=== PATIENT | female | born 1960 | race Caucasian/White ===

== ENCOUNTER 2020-02-02 20:02 | Inpatient (IN) | payer MEDICAID, SELFPAY ==
[2020-02-02 20:10] VITALS: BP 117/68; PULSE 115; RESP 20; TEMP 36.9; O2SAT 96; BMI 28.3
--- NOTE | 2020-02-02 20:10 | CTR_ITS ---
PROCEDURE INFORMATION: Exam: CT Head Without Contrast Exam date and time: 02/02/2020 8:13 PM Age: 59 years old Clinical indication: Altered mental status/memory loss; Additional info: AMS TECHNIQUE: Imaging protocol: Computed tomography of the head without contrast. Radiation optimization: All CT scans at this facility use at least one of these dose optimization techniques: automated exposure control; mA and/or kV adjustment per patient size (includes targeted exams where dose is matched to clinical indication); or iterative reconstruction. COMPARISON: No relevant prior studies available. RADIATION DOSE METRICS: Total DLP (mGy-cm): 744.99 FINDINGS: Brain: Normal. No hemorrhage. Unremarkable white matter. No mass effect. Ventricles: Normal. No ventriculomegaly. Bones/joints: Unremarkable. No acute fracture. Sinuses: Mild scattered paranasal sinus mucosal thickening and secretions. Mastoid air cells: Visualized mastoid air cells are well aerated. Soft tissues: Unremarkable. CT/CT head wo con* [id number] IMPRESSION: No acute intracranial abnormality. Radiation Dose CTDIVOL = (mGy): DLP = 744.99 (mGy-cm)
--- NOTE | 2020-02-02 20:10 | XRR_ITS ---
PROCEDURE INFORMATION: Exam: XR Chest, 1 View Exam date and time: 02/02/2020 8:43 PM Age: 59 years old Clinical indication: Dyspnea; Additional info: AMS TECHNIQUE: Imaging protocol: XR of the chest Views: 1 view. COMPARISON: No relevant prior studies available. FINDINGS: Lungs: Unremarkable. No consolidation. Pleural space: Unremarkable. No pleural effusion. No pneumothorax. Heart/Mediastinum: Unremarkable. No cardiomegaly. Bones/joints: Unremarkable. XR/XR chest 1V portable [id number] IMPRESSION: No acute findings.
--- NOTE | 2020-02-02 20:11 | US_ITS ---
WS: [id number] Complete ABDOMINAL ULTRASOUND HISTORY: Abdominal Pain COMPARISON: None available. Liver: 16.5 cm in length. Significant coarsened echotexture throughout the liver. Loss of the normal portal triads. No bile duct dilatation. No mass is identified. Surface of the liver is irregular. Gallbladder: Prior cholecystectomy. Pancreas: Poorly visualized. CBD: 0.7 cm. Right kidney: 9.9 cm x 5.2 cm x 4.7 cm. No mass, cortical thickening or hydronephrosis. Left kidney: 11.0 cm x 5.1 cm x 4.8 cm. No mass, cortical thickening or hydronephrosis. Spleen: Spleen is slightly enlarged at 14.6 cm in length. Abdominal aorta and IVC are within normal limits. No ascites. US/US abdomen complete* [id number] IMPRESSION: 1. Marked hepatocellular disease. Probably cirrhosis with hepatic steatosis. 2. Prior cholecystectomy. Mild splenomegaly.
--- NOTE | 2020-02-02 20:11 | ECG_ITS ---
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 Measurements Intervals [place] Rate: 114 P: 195 ND: 221 QRS: 44 QRSD: 95 T: 33 QT: 359 QTc: 496 Interpretive Statements ECTOPIC ATRIAL TACHYCARDIA WITH FIRST DEGREE AV BLOCK LOW QRS VOLTAGE IN EXTREMITY LEADS [QRS DEFLECTION < 0.5 mV IN LIMB LEADS] No previous ECG available for comparison Electronically Signed On 02-02-2020 23:38:57 CDT by Viki Kee M.D. [id number]
--- NOTE | 2020-02-02 20:27 | CTR_ITS ---
PROCEDURE INFORMATION: Exam: CT Abdomen And Pelvis With Contrast Exam date and time: 02/02/2020 8:13 PM Age: 59 years old Clinical indication: Abdominal pain; Prior surgery; Additional info: Abdominal pain/bloody stools TECHNIQUE: Imaging protocol: Computed tomography of the abdomen and pelvis with intravenous contrast. Radiation optimization: All CT scans at this facility use at least one of these dose optimization techniques: automated exposure control; mA and/or kV adjustment per patient size (includes targeted exams where dose is matched to clinical indication); or iterative reconstruction. Contrast material: OMNI 300; Contrast volume: 95 ml; Contrast route: INTRAVENOUS (IV); COMPARISON: No relevant prior studies available. RADIATION DOSE METRICS: Total DLP (mGy-cm): 1087.62 FINDINGS: Liver: Severe hepatic steatosis with lobulation of the liver contour and hypertrophied left hepatic lobe, evidence for underlying chronic liver disease. Gallbladder and bile ducts: Normal. No calcified stones. No ductal dilation. Pancreas: Normal. No ductal dilation. Spleen: Borderline splenomegaly. Adrenals: Normal. No mass. Kidneys and ureters: Normal. No hydronephrosis. Stomach and bowel: Pronounced gastric, duodenal, and colonic wall thickening with submucosal edema. Correlate for infectious or inflammatory bowel disease versus bowel congestion from liver disease. Appendix: Appendectomy. Intraperitoneal space: Unremarkable. No free air. No significant fluid collection. Vasculature: Unremarkable. No abdominal aortic aneurysm. Lymph nodes: Unremarkable. No enlarged lymph nodes. Bladder: Unremarkable as visualized. Reproductive: Hysterectomy. Bones/joints: Unremarkable. No acute fracture. Soft tissues: Numerous clips abutting the liver. Other findings: Small amounts of streaky fluid and stranding. CT/CT abdomen pelvis w con* [id number] IMPRESSION: 1. Pronounced gastric, duodenal, and colonic wall thickening with submucosal edema. Correlate for infectious or inflammatory bowel disease versus bowel congestion from liver disease. 2. Severe hepatic steatosis with lobulation of the liver contour and hypertrophied left hepatic lobe, evidence for underlying chronic liver disease. 3. Borderline splenomegaly. 4. Small amounts of streaky fluid and stranding. Radiation Dose CTDIVOL = (mGy): DLP = 1087.62 (mGy-cm)
--- NOTE | 2020-02-02 20:39 | W.ED.NAVMDI ---
HPI - Nausea/Vomiting/Diarrhea General: Chief complaint: Nausea/Vomiting/Diarrhea Stated complaint: etoh Time Seen by Provider: 02/02/20 20:10 Source: patient Mode of arrival: ambulatory Limitations: no limitations History of Present Illness: HPI Narrative: Ms. Rueda is a 59-year-old female who comes in with a complaint of bloody stools. She is been having bloody stools for the past few days. EMS reports the patient is an alcoholic and has been on a prolonged alcohol binge. Patient also states that she has ulcers but denies any history of esophageal varices. She has not been hypotensive for them. Patient denies any other medical problems. She keeps continually asking for something to drink. The patient is a poor historian further history is taken from old charts and EMS. Associated nausea: Yes Associated symtoms: Reports nausea; Denies change in vision, chest pain, diaphoresis, dizziness, dysuria, fatigue, headache(s), malaise, palpitations or syncope Review of Systems Const: Denies: fever(s), chills, body aches, fatigue, malaise or diaphoresis Eyes: Denies: change in vision, blurry vision, blind spots, photophobia, eye discharge or eye redness ENMT: Denies: throat pain, odynophagia, hoarseness, swelling of lips/tongue, oral sores, ear or mastoid pain, ear discharge, change in hearing or nasal discharge Card: Denies: chest pain, palpitations, irregular heart rhythm, edema, lightheadedness, syncope, pre-syncope, dyspnea on exertion or orthopnea Resp: Denies: dyspnea, productive cough, non-productive cough, wheezing, hemoptysis or chest congestion GI: Reports: abdominal pain, nausea, vomiting, hematemesis, diarrhea and hematochezia; Denies: coffee ground emesis, heartburn, constipation, GI cramping or melena : Denies: flank pain, dysuria, urinary frequency, urinary urgency or hematuria Musc: Denies: neck pain, back pain, extremity pain, extremity swelling, joint pain, joint swelling, joint redness, joint warmth or joint stiffness Skin/Breast: Denies: rash, pruritus, erythema, skin tenderness or jaundice Neuro: Denies: headache(s), numbness in extremities, weakness in extremities, sensory changes, lack of coordination, difficulty walking, dizziness, vertigo, confusion, Slurred speech present or seizure-like activity Jared/Lymph: Denies: easy bruising, easy bleeding, petechiae, purpura or enlarged lymph nodes All/Imm: Denies: urticaria, throat swelling, tongue swelling, facial swelling or acute wheezing PFSH ED PFSH: Medical History Alcoholism Anxiety Depression Eating disorder Liver cirrhosis Surgical History History of esophagogastroduodenoscopy (EGD) S/P cholecystectomy Social History Current gender identity: Female Physical Exam Const: COMMON NORMALS: no acute distress, patient oriented x3, no limitations, healthy appearing and well nourished GENERAL APPEARANCE: cooperative, well kempt and well developed HENMT: COMMON NORMALS: normocephalic, atraumatic, external ears normal, EAC's normal and Normal external nose present HEAD & SCALP: normal to inspection, normocephalic and atraumatic FACE & SINUS: normal facial exam and face symmetric NOSE: Normal external nose present and Normal nares present EXTERNAL EAR: Yes external ears normal EXTERNAL AUDITORY CANAL: EAC's normal MOUTH: Normal oral and palatal mucosa present, lip normal and tongue normal Eye: COMMON NORMALS: Equal, round and reactive pupils present and conjunctivae normal GENERAL EYE: appearance normal, both eyes and all related structures ALIGNMENT: Yes alignment normal PERIORBITAL: periorbital findings normal EYELID: eyelids normal CONJUNCTIVA: Yes conjunctivae normal SCLERA: sclerae normal PUPIL: Yes Equal, round and reactive pupils present Neck/C-Spine: COMMON NORMALS: full ROM, no lymphadenopathy, supple, no meningeal signs and no JVD GENERAL: Yes normal visual inspection and Yes trachea midline Chest: COMMONS NORMALS: normal inspection of the chest and normal palpation of entire chest wall Resp: COMMON NORMALS: normal respiratory effort, No retractions and No use of accessory muscles EFFORT & INSPECTION: Yes able to speak in complete sentences and Yes symmetric chest movement AUSCULTATION: no crackles, no rales, no rhonchi and no wheezes Cardio: COMMON NORMALS: no JVD, regular rate, regular rhythm, S1 normal heart sound present and S2 normal heart sound present RATE: regular rate RHYTHM: regular rhythm HEART SOUNDS: S1 normal heart sound present, S2 normal heart sound present, no click, no gallops, no murmurs, no rubs and abnormal split S2 GI: COMMON NORMALS: Soft to palpation and No hepatosplenomegaly present PALPATION: Yes Soft to palpation, No Tenderness to palpation present (GI), No Guarding due to palpation present (GI), No Rigid due to palpation, Yes No hepatosplenomegaly present, No Hernia present, No Palpable mass present and No Pulsatile mass present : COMMON NORMALS: Yes no CVA tenderness BLADDER/KIDNEY EXAM: Yes no CVA tenderness EXTERNAL FEMALE EXAM: No Hernia present Back/Pelvis: COMMON NORMALS: no CVA tenderness, thoracic and lumbar spine normal to inspection, no thoracic nor lumbar tenderness and thoraco-lumbar ROM normal Extremity: COMMON NORMALS: normal to inspection, full ROM, capillary refill normal, no joint enlargement, no clubbing, cyanosis or edema and no calf tenderness Neuro: COMMON NORMALS: patient oriented x3, CN's II-XII intact bilaterally, moves all extremities, no focal motor deficits and no sensory deficits noted MENINGEAL SIGNS: Yes no meningeal signs SPEECH: speech normal Psych: COMMON NORMALS: mental status grossly normal, Normal thought process present, cooperative, normal affect, speech normal and activity/motor behavior normal APPEARANCE: Yes well kempt SPEECH: Yes normal speech THOUGHT PROCESS: Normal thought process present Skin: COMMON NORMALS: no rashes or lesions noted, turgor normal, no jaundice, no petechiae and no mottling GENERAL SKIN EXAM: no rashes or lesions noted and turgor normal Course Vital Signs: Vital signs: Vital Signs Temperature 98.5 F 02/02/20 20:10 Pulse Rate 112 H 02/02/20 23:15 Respiratory Rate 19 H 02/02/20 23:15 Blood Pressure 110/68 02/02/20 23:15 Pulse Oximetry 96 02/02/20 23:15 MDM - Nausea/Vomiting/Diarrhea MDM Narrative: Medical decision making narrative: [id number] -the case had previously been discussed with both Drs. Mcconnell and Harjeet. Both were agreeable to admission and consult. The patient has no history of esophageal varices and I confirmed no evidence of esophageal varices on the CT scan with the [facility] radiologist. The patient does have evidence of ulcers and she knew of these ulcers. It is unclear whether she is had any hematic emesis but she is definitely had hematochezia. I also asked the radiologist about the possibility of mesenteric ischemia secondary to the patient's lactate although she does not have pain out of proportion to exam or signs of peritonitis on her abdominal exam. He states the distribution of the inflammation is not consistent with mesenteric ischemia. Patient does not appear to have a great deal of abdominal pain she seems to be primarily concerned with getting something to drink while here. She is afebrile but she has been treated for sepsis, placed on a proton pump inhibitor for her GI bleed and given empiric antibiotics for her colitis. At this time the patient is almost completed her fluid bolus and her heart rate is in the 100s and she appears to Have converted to a sinus rhythm. Her blood pressure has always been stable and never hypotensive. The patient was typed and crossmatched for 2 units of blood and they are on hold in the lab. I anticipate the patient will likely have to be transfused after hemodilution from the sepsis bolus but she has not demonstrated any ongoing blood losses in her stools here. This time the patient is improved in her condition but I believe she should still go to the ICU for definitive care. Lab Data: Attestation: I reviewed the patient's lab results. Labs: Lab Results 02/02/20 02/02/20 02/02/20 Range/Units 20:38 20:38 20:38 WBC 8.9 (4.0-10.0) 10^3/ uL RBC 3.08 L (4.1-5.3) 10^6/u L Hgb 8.8 L (11.5-15.3) g/dL Hct 28.6 L (37.0-47.0) % MCV 92.9 (81-99) fL MCH 28.6 (28.0-34.0) pg MCHC 30.8 (30.0-36.0) g/dL RDW 16.1 H (12.1-15.1) % Plt Count 40 L (130-400) 10^3/c mm MPV 12.2 H (7.4-10.4) fL Neut % (Auto) 70.4 % Lymph % (Auto) 22.8 % Spalding % (Auto) 5.2 % Eos % (Auto) 0.7 % Baso % (Auto) 0.2 % Neut # (Auto) 6.28 (1.8-7.7) 10^3/u L Lymph # (Auto) 2.0 (0.8-4.8) 10^3/u L Spalding # (Auto) 0.5 (0.2-0.9) 10^3/u L Eos # (Auto) 0.1 (0.0-0.8) 10^3/u L Baso # (Auto) 0.0 (0.0-0.1) 10^3/u L Nucleated RBC % (a uto) 0.2 % Nucleated RBCs # 0.0 /100WBC PT (10.5-13.3) SECO NDS INR (0.8-1.2) APTT (23.9-36.7) SECO NDS Specimen Type Sample Site ABG pH (7.35-7.45) ABG pCO2 (35-45) mmHg ABG pO2 (80.0-100.0) mmH g ABG HCO3 (22-26) mmol/L ABG O2 Saturation ABG Base Excess (-2.0-2.0) mmol/ L Tashi Test A-a O2 Gradient (5-10) mmHg Hematocrit (37-47) % Hgb O2 Saturation (95-100) % Carboxyhemoglobin (0.4-20.1) %THgb Methemoglobin (0.4-1.5) % Total Hemoglobin (12-16) g/dL Ionized Calcium (1.1-1.4) mmol/L O2 Delivery Device FiO2 % Architectural Drafting Instructor ID Sodium 141 (136-145) mmol/L Potassium 3.0 L (3.5-5.1) mmol/L Chloride 102 (98-107) mmol/L Carbon Dioxide 18 L (22-29) mmol/L Anion Gap 24.0 H (5-19) BUN 8 (6-20) mg/dL Creatinine 0.5 (0.5-0.9) mg/dL GFR Calculation 127.2 (90-130) mL/min Glucose 89 (65-115) mg/dL Calculated Osmolal ity 287 (285-295) mOsm/k g Lactic Acid (0.5-2.2) mmol/L Calcium 6.7 L (8.5-10.5) mg/dL Magnesium 1.7 (1.7-2.3) mg/dL Total Bilirubin 0.4 (0.15-1.2) mg/dL AST 50 H (0-32) U/L ALT 28 (0-33) U/L Alkaline Phosphata se 163 H (35-105) IU/L Ammonia 43 (11-51) umol/L Creatine Kinase 95 (26-192) U/L Troponin T Baselin e (0-10) ng/L Total Protein 5.1 L (6.6-8.7) g/dL Albumin 3.2 L (3.5-5.2) g/dL Globulin 1.9 (1.3-4.6) g/dL Lipase 181 H (13-60) U/L TSH 1.25 (0.27-4.20) uIU/ mL Free T4 0.73 L (0.82-1.77) ng/d L Urine Color (Yellow) Urine Appearance (CLEAR) Urine pH (5-7) Ur Specific Gravit y (1.005-1.030) Urine Protein (Negative) Urine Glucose (UA) (Normal) Urine Ketones (Negative) Urine Blood (Negative) Urine Nitrate (Negative) Urine Bilirubin (NEGATIVE) Urine Urobilinogen (Negative) mg/dL Ur Leukocyte Bindu ase (Negative) Urine RBC (0-2) /hpf Urine WBC (0-5) /hpf Ur Squamous Epith Cells (0-5) Urine Bacteria (NONE) Ethyl Alcohol 363 H* (0-10) mg/dL Serum Ketones (Negative) Blood Type Rho(D) Type Antibody Screen Crossmatch 02/02/20 02/02/20 02/02/20 Range/Units 20:38 20:38 20:38 WBC (4.0-10.0) 10^3/ uL RBC (4.1-5.3) 10^6/u L Hgb (11.5-15.3) g/dL Hct (37.0-47.0) % MCV (81-99) fL MCH (28.0-34.0) pg MCHC (30.0-36.0) g/dL RDW (12.1-15.1) % Plt Count (130-400) 10^3/c mm MPV (7.4-10.4) fL Neut % (Auto) % Lymph % (Auto) % Spalding % (Auto) % Eos % (Auto) % Baso % (Auto) % Neut # (Auto) (1.8-7.7) 10^3/u L Lymph # (Auto) (0.8-4.8) 10^3/u L Spalding # (Auto) (0.2-0.9) 10^3/u L Eos # (Auto) (0.0-0.8) 10^3/u L Baso # (Auto) (0.0-0.1) 10^3/u L Nucleated RBC % (a uto) % Nucleated RBCs # /100WBC PT 15.30 H (10.5-13.3) SECO NDS INR 1.17 (0.8-1.2) APTT 26.0 (23.9-36.7) SECO NDS Specimen Type Sample Site ABG pH (7.35-7.45) ABG pCO2 (35-45) mmHg ABG pO2 (80.0-100.0) mmH g ABG HCO3 (22-26) mmol/L ABG O2 Saturation ABG Base Excess (-2.0-2.0) mmol/ L Tashi Test A-a O2 Gradient (5-10) mmHg Hematocrit (37-47) % Hgb O2 Saturation (95-100) % Carboxyhemoglobin (0.4-20.1) %THgb Methemoglobin (0.4-1.5) % Total Hemoglobin (12-16) g/dL Ionized Calcium (1.1-1.4) mmol/L O2 Delivery Device FiO2 % Architectural Drafting Instructor ID Sodium (136-145) mmol/L Potassium (3.5-5.1) mmol/L Chloride (98-107) mmol/L Carbon Dioxide (22-29) mmol/L Anion Gap (5-19) BUN (6-20) mg/dL Creatinine (0.5-0.9) mg/dL GFR Calculation (90-130) mL/min Glucose (65-115) mg/dL Calculated Osmolal ity (285-295) mOsm/k g Lactic Acid 4.2 H* (0.5-2.2) mmol/L Calcium (8.5-10.5) mg/dL Magnesium (1.7-2.3) mg/dL Total Bilirubin (0.15-1.2) mg/dL AST (0-32) U/L ALT (0-33) U/L Alkaline Phosphata se (35-105) IU/L Ammonia (11-51) umol/L Creatine Kinase (26-192) U/L Troponin T Baselin e (0-10) ng/L Total Protein (6.6-8.7) g/dL Albumin (3.5-5.2) g/dL Globulin (1.3-4.6) g/dL Lipase (13-60) U/L TSH (0.27-4.20) uIU/ mL Free T4 (0.82-1.77) ng/d L Urine Color (Yellow) Urine Appearance (CLEAR) Urine pH (5-7) Ur Specific Gravit y (1.005-1.030) Urine Protein (Negative) Urine Glucose (UA) (Normal) Urine Ketones (Negative) Urine Blood (Negative) Urine Nitrate (Negative) Urine Bilirubin (NEGATIVE) Urine Urobilinogen (Negative) mg/dL Ur Leukocyte Bindu ase (Negative) Urine RBC (0-2) /hpf Urine WBC (0-5) /hpf Ur Squamous Epith Cells (0-5) Urine Bacteria (NONE) Ethyl Alcohol (0-10) mg/dL Serum Ketones Positive H (Negative) Blood Type Rho(D) Type Antibody Screen Crossmatch 02/02/20 02/02/20 02/02/20 Range/Units 20:38 20:38 20:42 WBC (4.0-10.0) 10^3/ uL RBC (4.1-5.3) 10^6/u L Hgb (11.5-15.3) g/dL Hct (37.0-47.0) % MCV (81-99) fL MCH (28.0-34.0) pg MCHC (30.0-36.0) g/dL RDW (12.1-15.1) % Plt Count (130-400) 10^3/c mm MPV (7.4-10.4) fL Neut % (Auto) % Lymph % (Auto) % Spalding % (Auto) % Eos % (Auto) % Baso % (Auto) % Neut # (Auto) (1.8-7.7) 10^3/u L Lymph # (Auto) (0.8-4.8) 10^3/u L Spalding # (Auto) (0.2-0.9) 10^3/u L Eos # (Auto) (0.0-0.8) 10^3/u L Baso # (Auto) (0.0-0.1) 10^3/u L Nucleated RBC % (a uto) % Nucleated RBCs # /100WBC PT (10.5-13.3) SECO NDS INR (0.8-1.2) APTT (23.9-36.7) SECO NDS Specimen Type Arterial Sample Site Radial, left ABG pH 7.39 (7.35-7.45) ABG pCO2 29.3 L (35-45) mmHg ABG pO2 74.3 L (80.0-100.0) mmH g ABG HCO3 17.9 L (22-26) mmol/L ABG O2 Saturation 95.4 ABG Base Excess -6.2 L (-2.0-2.0) mmol/ L Tashi Test Pos A-a O2 Gradient 37.4 H (5-10) mmHg Hematocrit 28.0 L (37-47) % Hgb O2 Saturation 92.8 L (95-100) % Carboxyhemoglobin 2.1 (0.4-20.1) %THgb Methemoglobin 0.6 (0.4-1.5) % Total Hemoglobin 9.1 L (12-16) g/dL Ionized Calcium 1.0 L (1.1-1.4) mmol/L O2 Delivery Device Room air FiO2 21.0 % Architectural Drafting Instructor ID monro Sodium 145.0 H (136-145) mmol/L Potassium 3.0 L (3.5-5.1) mmol/L Chloride (98-107) mmol/L Carbon Dioxide (22-29) mmol/L Anion Gap (5-19) BUN (6-20) mg/dL Creatinine (0.5-0.9) mg/dL GFR Calculation (90-130) mL/min Glucose 93.0 (65-115) mg/dL Calculated Osmolal ity (285-295) mOsm/k g Lactic Acid (0.5-2.2) mmol/L Calcium (8.5-10.5) mg/dL Magnesium (1.7-2.3) mg/dL Total Bilirubin (0.15-1.2) mg/dL AST (0-32) U/L ALT (0-33) U/L Alkaline Phosphata se (35-105) IU/L Ammonia (11-51) umol/L Creatine Kinase (26-192) U/L Troponin T Baselin e 8 (0-10) ng/L Total Protein (6.6-8.7) g/dL Albumin (3.5-5.2) g/dL Globulin (1.3-4.6) g/dL Lipase (13-60) U/L TSH (0.27-4.20) uIU/ mL Free T4 (0.82-1.77) ng/d L Urine Color (Yellow) Urine Appearance (CLEAR) Urine pH (5-7) Ur Specific Gravit y (1.005-1.030) Urine Protein (Negative) Urine Glucose (UA) (Normal) Urine Ketones (Negative) Urine Blood (Negative) Urine Nitrate (Negative) Urine Bilirubin (NEGATIVE) Urine Urobilinogen (Negative) mg/dL Ur Leukocyte Bindu ase (Negative) Urine RBC (0-2) /hpf Urine WBC (0-5) /hpf Ur Squamous Epith Cells (0-5) Urine Bacteria (NONE) Ethyl Alcohol (0-10) mg/dL Serum Ketones (Negative) Blood Type O Positive Rho(D) Type Positive Antibody Screen Negative Crossmatch See Detail 02/02/20 Range/Units 22:35 WBC (4.0-10.0) 10^3/ uL RBC (4.1-5.3) 10^6/u L Hgb (11.5-15.3) g/dL Hct (37.0-47.0) % MCV (81-99) fL MCH (28.0-34.0) pg MCHC (30.0-36.0) g/dL RDW (12.1-15.1) % Plt Count (130-400) 10^3/c mm MPV (7.4-10.4) fL Neut % (Auto) % Lymph % (Auto) % Spalding % (Auto) % Eos % (Auto) % Baso % (Auto) % Neut # (Auto) (1.8-7.7) 10^3/u L Lymph # (Auto) (0.8-4.8) 10^3/u L Spalding # (Auto) (0.2-0.9) 10^3/u L Eos # (Auto) (0.0-0.8) 10^3/u L Baso # (Auto) (0.0-0.1) 10^3/u L Nucleated RBC % (a uto) % Nucleated RBCs # /100WBC PT (10.5-13.3) SECO NDS INR (0.8-1.2) APTT (23.9-36.7) SECO NDS Specimen Type Sample Site ABG pH (7.35-7.45) ABG pCO2 (35-45) mmHg ABG pO2 (80.0-100.0) mmH g ABG HCO3 (22-26) mmol/L ABG O2 Saturation ABG Base Excess (-2.0-2.0) mmol/ L Tashi Test A-a O2 Gradient (5-10) mmHg Hematocrit (37-47) % Hgb O2 Saturation (95-100) % Carboxyhemoglobin (0.4-20.1) %THgb Methemoglobin (0.4-1.5) % Total Hemoglobin (12-16) g/dL Ionized Calcium (1.1-1.4) mmol/L O2 Delivery Device FiO2 % Architectural Drafting Instructor ID Sodium (136-145) mmol/L Potassium (3.5-5.1) mmol/L Chloride (98-107) mmol/L Carbon Dioxide (22-29) mmol/L Anion Gap (5-19) BUN (6-20) mg/dL Creatinine (0.5-0.9) mg/dL GFR Calculation (90-130) mL/min Glucose (65-115) mg/dL Calculated Osmolal ity (285-295) mOsm/k g Lactic Acid (0.5-2.2) mmol/L Calcium (8.5-10.5) mg/dL Magnesium (1.7-2.3) mg/dL Total Bilirubin (0.15-1.2) mg/dL AST (0-32) U/L ALT (0-33) U/L Alkaline Phosphata se (35-105) IU/L Ammonia (11-51) umol/L Creatine Kinase (26-192) U/L Troponin T Baselin e (0-10) ng/L Total Protein (6.6-8.7) g/dL Albumin (3.5-5.2) g/dL Globulin (1.3-4.6) g/dL Lipase (13-60) U/L TSH (0.27-4.20) uIU/ mL Free T4 (0.82-1.77) ng/d L Urine Color Yellow (Yellow) Urine Appearance Clear (CLEAR) Urine pH 5 (5-7) Ur Specific Gravit y 1.010 (1.005-1.030) Urine Protein Neg (Negative) Urine Glucose (UA) Norm (Normal) Urine Ketones 2+ H (Negative) Urine Blood 2+ H (Negative) Urine Nitrate Negative (Negative) Urine Bilirubin Neg (NEGATIVE) Urine Urobilinogen Norm (Negative) mg/dL Ur Leukocyte Bindu ase Negative (Negative) Urine RBC 0-4 H (0-2) /hpf Urine WBC None (0-5) /hpf Ur Squamous Epith Cells 0-4 H (0-5) Urine Bacteria Trace (NONE) Ethyl Alcohol (0-10) mg/dL Serum Ketones (Negative) Blood Type Rho(D) Type Antibody Screen Crossmatch Imaging Data^: CXR: My impression: No acute cardiopulmonary findings. CT Head: Radiologist's impression: [address] [address] [address] Scan Report Signed with Addenda Patient: Gely Jimenez Unit #: [id number] : 1960 Age/Sex: 59 / F ADM Date: 02/02/20 Loc: ER Room/Bed: Attending Dr: Ordering Provider/Ordering MD: Odalis Navarrete DO Date of Service: 02/02/20 Procedure(s): CT head wo con* [id number] Accession Number(s): [id number] Report Number: [id number]/CT head wo con* [id number] Addendum: Incidental chronic left lamina papyracea fracture noted. Radiation Dose CTDIVOL = (mGy): DLP = 744.99 (mGy-cm) Addendum Dictated By: Shawn Carrillo MD Addendum Signed By: Shawn Carrillo MD Signed Date/Time: 02/02/20 Addendum Cosigned By: PROCEDURE INFORMATION: Exam: CT Head Without Contrast Exam date and time: 02/02/2020 8:13 PM Age: 59 years old Clinical indication: Altered mental status/memory loss; Additional info: AMS TECHNIQUE: Imaging protocol: Computed tomography of the head without contrast. Radiation optimization: All CT scans at this facility use at least one of these dose optimization techniques: automated exposure control; mA and/or kV adjustment per patient size (includes targeted exams where dose is matched to clinical indication); or iterative reconstruction. COMPARISON: No relevant prior studies available. RADIATION DOSE METRICS: Total DLP (mGy-cm): 744.99 FINDINGS: Brain: Normal. No hemorrhage. Unremarkable white matter. No mass effect. Ventricles: Normal. No ventriculomegaly. Bones/joints: Unremarkable. No acute fracture. Sinuses: Mild scattered paranasal sinus mucosal thickening and secretions. Mastoid air cells: Visualized mastoid air cells are well aerated. Soft tissues: Unremarkable. CT/CT head wo con* [id number] IMPRESSION: No acute intracranial abnormality. Radiation Dose CTDIVOL = (mGy): DLP = 744.99 (mGy-cm) Dictated By: Shawn Carrillo MD Signed By: Shawn Carrillo MD Signed Date/Time: 02/02/202137 DD/ 37 CT Abd/Pel: Radiologist's impression: [address] [address] [address] Scan Report Signed Patient: Gely Jimenez Unit #: [id number] : 1960 Age/Sex: 59 / F ADM Date: 02/02/20 Loc: ER Room/Bed: Attending Dr: Ordering Provider/Ordering MD: Odalis Navarrete DO Date of Service: 02/02/20 Procedure(s): CT abdomen pelvis w con* [id number] Accession Number(s): [id number] Report Number: [id number] PROCEDURE INFORMATION: Exam: CT Abdomen And Pelvis With Contrast Exam date and time: 02/02/2020 8:13 PM Age: 59 years old Clinical indication: Abdominal pain; Prior surgery; Additional info: Abdominal pain/bloody stools TECHNIQUE: Imaging protocol: Computed tomography of the abdomen and pelvis with intravenous contrast. Radiation optimization: All CT scans at this facility use at least one of these dose optimization techniques: automated exposure control; mA and/or kV adjustment per patient size (includes targeted exams where dose is matched to clinical indication); or iterative reconstruction. Contrast material: OMNI 300; Contrast volume: 95 ml; Contrast route: INTRAVENOUS (IV); COMPARISON: No relevant prior studies available. RADIATION DOSE METRICS: Total DLP (mGy-cm): 1087.62 FINDINGS: Liver: Severe hepatic steatosis with lobulation of the liver contour and hypertrophied left hepatic lobe, evidence for underlying chronic liver disease. Gallbladder and bile ducts: Normal. No calcified stones. No ductal dilation. Pancreas: Normal. No ductal dilation. Spleen: Borderline splenomegaly. Adrenals: Normal. No mass. Kidneys and ureters: Normal. No hydronephrosis. Stomach and bowel: Pronounced gastric, duodenal, and colonic wall thickening with submucosal edema. Correlate for infectious or inflammatory bowel disease versus bowel congestion from liver disease. Appendix: Appendectomy. Intraperitoneal space: Unremarkable. No free air. No significant fluid collection. Vasculature: Unremarkable. No abdominal aortic aneurysm. Lymph nodes: Unremarkable. No enlarged lymph nodes. Bladder: Unremarkable as visualized. Reproductive: Hysterectomy. Bones/joints: Unremarkable. No acute fracture. Soft tissues: Numerous clips abutting the liver. Other findings: Small amounts of streaky fluid and stranding. CT/CT abdomen pelvis w con* [id number] IMPRESSION: 1. Pronounced gastric, duodenal, and colonic wall thickening with submucosal edema. Correlate for infectious or inflammatory bowel disease versus bowel congestion from liver disease. 2. Severe hepatic steatosis with lobulation of the liver contour and hypertrophied left hepatic lobe, evidence for underlying chronic liver disease. 3. Borderline splenomegaly. 4. Small amounts of streaky fluid and stranding. Radiation Dose CTDIVOL = (mGy): DLP = 1087.62 (mGy-cm) Dictated By: Shawn Carrillo MD Signed By: Shawn Carrillo MD Signed Date/Time: 02/02/202142 DD/ 41 US: My impression: Ultrasound abdomen, technologist interpretation -fatty liver, no ascites. Otherwise no acute findings. EKG Data^: EKG 1: Attestation: I personally reviewed and interpreted this EKG as follows: EKG interpretation date: 02/02/20 EKG interpretation time: 22:11 Interpretation: Atrial fibrillation with a heart rate of 147 beats a minute, nonspecific ST and T wave changes, PVC noted. EKG 2: Attestation: I personally reviewed and interpreted this EKG as follows: EKG interpretation date: 02/02/20 EKG interpretation time: 20:24 Interpretation: Normal sinus rhythm 114 beats a minute, normal axis, no blocks, normal intervals, no acute ST or T wave changes. Discharge Plan Discharge Admit Provider: Vadim Mcconnell Coding Level of Care Code ED Technical Translator for g Timoteo
[2020-02-02 20:53] LABS: Basophils % 0.2 %; Eosinophils # 0.1 10^3/uL (0.0-0.8); Eosinophils % 0.7 %; Hematocrit 28.6 % (37.0-47.0); Hemoglobin 8.8 g/dL (11.5-15.3); Lymphocytes % 22.8 %; Mean Corpuscular HGB Conc 30.8 g/dL (30.0-36.0); Mean Corpuscular Hemoglobin 28.6 pg (28.0-34.0); Mean Corpuscular Volume 92.9 fL (81-99); Mean Platelet Volume 12.2 fL (7.4-10.4); Monocytes # 0.5 10^3/uL (0.2-0.9); Monocytes % 5.2 %; Neutrophils # 6.28 10^3/uL (1.8-7.7); Neutrophils % 70.4 %; Nucleated Red Blood Cells % 0.2 %; Platelet Count 40 10^3/cmm (130-400); Red Blood Count 3.08 10^6/uL (4.1-5.3); Red Cell Distribution Width 16.1 % (12.1-15.1); White Blood Count 8.9 10^3/uL (4.0-10.0)
[2020-02-02 20:56] LABS: ABG PCO2 29.3 mmHg (35-45); ABG PH Result 7.39 (7.35-7.45); Alveolar-Arterial Oxygen Gradi 37.4 mmHg (5-10); Base Excess ABG -6.2 mmol/L (-2.0-2.0); Blood Gas Allen Test Pos; Blood Gas Sample Site Radial, left; Blood Gas Sample Type Arterial; Carboxyhemoglobin 2.1 %THgb (0.4-20.1); HCO3 ABG 17.9 mmol/L (22-26); HGB O2 Sat 92.8 % (95-100); Methemoglobin 0.6 % (0.4-1.5); Oxygen Device ROOM AIR; Oxygen Saturation ABG 95.4; PO2 ABG 74.3 mmHg (80.0-100.0); Total Hemoglobin 9.1 g/dL (12-16)
[2020-02-02 21:05] LABS: Ammonia 43 umol/L (11-51); INR 1.17 (0.8-1.2)
[2020-02-02 21:06] LABS: Ketone (Acetest) Serum Positive (Negative)
[2020-02-02 21:18] LABS: Troponin(5th) Baseline 8 ng/L (0-10)
[2020-02-02] MEDS: ondansetron 2 mg/ML SDV 2 mL 4 MG IVP (21:19)
[2020-02-02] MEDS: pantoprazole 40 mg SDV 80 MG IVP (21:20)
[2020-02-02] MEDS: cefTRIAXone 1,000 MG in sodium chloride 0.9% (plus) 50 ML 100 MG IV (21:22)
[2020-02-02] MEDS: iohexol 300 mg/mL 100 mL Btl IV (21:22)
[2020-02-02 21:26] LABS: Alanine Aminotransferase 28 U/L (0-33); Albumin Level 3.2 g/dL (3.5-5.2); Alkaline Phosphatase 163 IU/L (35-105); Aspartate Amino Transferase 50 U/L (0-32); Blood Urea Nitrogen 8 mg/dL (6-20); Calcium 6.7 mg/dL (8.5-10.5); Carbon Dioxide 18 mmol/L (22-29); Chloride 102 mmol/L (98-107); Creatine Phosphokinase 95 U/L (26-192); Free T4 Free Thyroxine 0.73 ng/dL (0.82-1.77); Globulin 1.9 g/dL (1.3-4.6); Glomerular Filtration Rate 127.2 mL/min (90-130); Glucose 89 mg/dL (65-115); Lipase 181 U/L (13-60); Magnesium 1.7 mg/dL (1.7-2.3); Osmolality Calculated 287 mOsm/kg (285-295); Sodium 141 mmol/L (136-145); Thyroid Stimulating Hormone 1.25 uIU/mL (0.27-4.20); Total Bilirubin 0.4 mg/dL (0.15-1.2); Total Protein 5.1 g/dL (6.6-8.7)
[2020-02-02] MEDS: pantoprazole 40 MG in sodium chloride 0.9% (plus) 100 ML 20 MG IV (21:27)
[2020-02-02] MEDS: folic acid 1 MG, multivitamin inj 10 ML, thiamine 100 MG in sodium chloride 0.9% 1,000 ML 252.8 MG IV (21:28)
[2020-02-02 21:36] LABS: Alcohol Level 363 mg/dL (0-10); Lactic Sepsis W/Reflex 4.2 mmol/L (0.5-2.2)
[2020-02-02 21:42] VITALS: BP 111/73; PULSE 140; RESP 18; O2SAT 98
--- NOTE | 2020-02-02 22:06 | PC.NURSE ---
EKG done at 2200 and shown to ER doctor
--- NOTE | 2020-02-02 22:11 | ECG_ITS ---
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 Measurements Intervals [place] Rate: 147 P: FL: -1 QRS: 119 QRSD: 98 T: -6 QT: 313 QTc: 490 Interpretive Statements ATRIAL FIBRILLATION WITH RAPID VENTRICULAR RESPONSE POSSIBLE RIGHT VENTRICULAR HYPERTROPHY [SOME/ALL OF: PROMINENT R IN V1, LATE TRANSITION, RAD, JASMYNE, SSS] ABNORMAL QRS-T ANGLE [QRS-T AXIS DIFFERENCE > 60] Compared to ECG 02/02/2020 20:24:55 First degree AV block no longer present Electronically Signed On 02-02-2020 23:51:31 CDT by Viki Kee M.D. [id number]
[2020-02-02 22:31] LABS: Reflex Lactate Order REFLEX LACTIC ORDERD
[2020-02-02] MEDS: potassium chloride premix 40 MEQ/100 ML PREMIX 25 MEQ IV (22:34)
[2020-02-02] MEDS: sodium chloride 0.9% 1,000 ML 100 ML IV (22:34)
[2020-02-02 22:35] VITALS: BP 133/62; PULSE 167; RESP 21; O2SAT 96
[2020-02-02] MEDS: piperacillin-tazobactam 3.375 GM in sodium chloride 0.9% (plus) 50 ML IV (22:35)
[2020-02-02 23:03] LABS: Bilirubin Urine Neg (NEGATIVE); Blood Urine 2+ (Negative); Glucose Urine UA Norm (Normal); Ketones Urine 2+ (Negative); Leukocyte Esterase Urine Negative (Negative); Nitrate Urine Negative (Negative); Protein Urine Neg (Negative); Urine Appearance Clear (CLEAR); Urine Color Yellow (Yellow); Urobilinogen Urine Norm (Negative); pH Urine 5 (5-7)
[2020-02-02 23:04] LABS: Add Urine Culture? No; Bacteria Urine TRACE; RBC Urine 0-4 /hpf (0-2); Squamous Epithelial Cell Urine 0-4 (0-5)
[2020-02-02 23:15] VITALS: BP 110/68; PULSE 112; RESP 19; O2SAT 96
[2020-02-02 23:42] VITALS: BP 110/66; PULSE 109; RESP 22; O2SAT 97
[2020-02-02 23:59] LABS: Troponin 5 2HR 10.74 ng/L (0-10); Troponin 5 2HR Delta 2.74 ABS# (0-10)
[2020-02-03] VITALS (63 sets, daily range): BP systolic 104–144; BP diastolic 61–84; PULSE 95–117; RESP 13–26; TEMP 36.8–37.3; O2SAT 90–100; BMI 28.3
[2020-02-03 00:12] LABS: Lactic Acid level (Lactate) 4.2 mmol/L (0.5-2.2)
--- NOTE | 2020-02-03 00:57 | PM.HP ---
Providers/Chief Complaint Admitting Physician: Vadim Mcconnell Chief Complaint: etoh History of Present Illness Gely Jimenez is a 59 year old lady with alcoholism, liver cirrhosis, anxiety, depression, eating disorder presented to the hospital complaining of bloody stools for several days with diarrhea, and stool and urine incontinence, as well as nausea, lack of oral intake for about 4 days, although does say that she has been staying hydrated. She states that she is an alcoholic, and states that she drinks close to half a gallon of vodka per day. States that her last drink was on 02/01. She reports having a problem previously with blood in her stool, and reports that was found to have an ulcer in her stomach on EGD. Denies having history of esophageal or gastric varices. Reports that she also had a colonoscopy close to 8 years ago. She smokes, but only occasionally. She reports that she intermittently takes ibuprofen at home for aches and pains. She does not take aspirin or any blood thinner. Hemoglobin is noted at 8.8. Noted thrombocytopenia of 40,000. CT abdomen pelvis with pronounced gastric, duodenal, colonic wall thickening with submucosal edema. Severe hepatic steatosis. Borderline splenomegaly. Currently she is complaining of diffuse abdominal pain. Feels nauseated. Thirsty, asking for some ice chips. Denies prior seizure with alcohol withdrawal. Says that she does get shaking during withdrawal. Review of Systems Const: Reports: other (nausea. Poor appetite. ); Denies: fever(s), chills, body aches or malaise Eyes: Denies: change in vision or eye redness ENMT: Reports: other (epistaxis today); Denies: throat pain, oral sores or ear or mastoid pain Card: Denies: chest pain, edema, pre-syncope or dyspnea on exertion Resp: Denies: dyspnea, productive cough, change in phlegm color or hemoptysis GI: Reports: abdominal pain, nausea, diarrhea and hematochezia; Denies: vomiting, hematemesis, constipation or melena : Denies: flank pain, urinary frequency or hematuria Musc: Denies: back pain, joint swelling or joint redness Skin/Breast: Denies: rash, sores or new lesions Neuro: Denies: headache(s), numbness in extremities, weakness in extremities, dizziness, confusion or seizure-like activity Endo: Denies: polyuria or polydipsia Jared/Lymph: Denies: easy bleeding or purpura All/Imm: Denies: urticaria, throat swelling or tongue swelling Medications/Allergies Home Medications Medication Instructions Recorded Confirmed Last Taken Type furosemide 40 mg tablet 40 mg PO DAILY 01/04/20 01/04/20 Unknown History gabapentin 300 mg capsule 300 mg PO DAILY 01/04/20 01/04/20 Unknown History spironolactone 100 mg tablet 100 mg PO DAILY 01/04/20 01/04/20 Unknown History venlafaxine 150 mg 150 mg PO DAILY 01/04/20 01/04/20 Unknown History capsule,extended release 24 hr Allergies Allergy/AdvReac Type Severity Reaction Status Date / Time No Known Allergies Allergy Verified 02/02/20 20:22 PFSH Acute PFSH: Medical History Alcoholism Anxiety Depression Eating disorder Liver cirrhosis Surgical History History of esophagogastroduodenoscopy (EGD) S/P cholecystectomy Family History Other Cancer Social History Smoking and tobacco status: current every day smoker cigarettes Number of cigarettes per day: 1-5 Alcohol intake: never Substance/Drug Use: never Lives independently: Yes Household members: none Marital status: Current occupational status: unemployed Current gender identity: Female Vitals/I&O/Wt Last Vital Signs Temp 98.5 F 02/02/20 20:10 Pulse 109 H 02/02/20 23:42 Resp 22 H 02/02/20 23:42 BP 110/66 02/02/20 23:42 Pulse Ox 97 02/02/20 23:42 Weight last 48 hrs Weight 72.575 kg Physical Exam Const: COMMON NORMALS: no acute distress and patient oriented x3 GENERAL APPEARANCE: anxious HENMT: COMMON NORMALS: oropharynx normal Neck/C-Spine: COMMON NORMALS: no JVD Resp: COMMON NORMALS: normal respiratory effort and clear to auscultation bilaterally AUSCULTATION: clear to auscultation bilaterally Cardio: COMMON NORMALS: no JVD, regular rhythm, S1 normal heart sound present, S2 normal heart sound present and No murmurs present (Cardio) RHYTHM: regular rhythm HEART SOUNDS: S1 normal heart sound present and S2 normal heart sound present GI: COMMON NORMALS: Normal to inspection, nondistended, normoactive bowel sounds present, Soft to palpation and non-tender (although compains of pain and requests for pain medication before the visit is over) PALPATION: Yes Soft to palpation Extremity: COMMON NORMALS: no joint enlargement and no pedal edema Neuro: COMMON NORMALS: patient oriented x3 and moves all extremities Skin: COMMON NORMALS: no rashes or lesions noted GENERAL SKIN EXAM: no rashes or lesions noted Data : 02/02/20 20:38 02/02/20 20:38 Micro: Microbiology 02/02/20 23:20 Blood Culture - Preliminary Blood SPECIMEN COLLECTED 02/02/20 23:13 Blood Culture - Preliminary Blood SPECIMEN COLLECTED A&P Assessment and plan (1) GI bleeding: Hematochezia which she reports is been going on for about several days, with diarrhea. Hemoglobin down to 8.8. Gastroduodenitis, colitis noted on CT abdomen pelvis. She reports ibuprofen intake, but also is a very heavy drinker, with about half a gallon of alcohol per day. Suspect alcohol-related gastroduodenitis. Colitis. Possibility of infectious colitis as well. 2 units PRBC requested on hold. Will recheck hemoglobin. Monitor subsequently. Continue Protonix drip. Antibiotics for colitis. Reassess platelets with a.m. labs. If trending down lower may require transfusion. Pending additional evaluation by surgery who were okay with ICU admission as per discussion with ER physician. Status: Acute (2) Gastroduodenitis: Suspected alcohol induced, NSAID induced gastroduodenitis. PPI drip at this time. When she is stable would benefit from additional assessment with history of PUD. But also current smoker. Discussed discontinuation of NSAIDs with her. But also importance of alcohol cessation. Smoking cessation. Status: Acute (3) Colitis: Continue Zosyn at this time. Assess stool for C. difficile, bacterial panel, ova parasite panel. Would benefit from additional endoscopic evaluation after resolution of colitis, or sooner in case of persistent bleeding without obvious source and upper GI. Pending surgical evaluation. Status: Acute (4) Pancreatitis: Lipase elevation just borderline to suggest acute pancreatitis. She reports history of pancreatitis in the past. CT abdomen pelvis without obvious signs of pancreatitis or CBD dilation. No stones. At this time supportive care for pain, IV hydration. Continue to encourage alcohol intake cessation. Status: Acute (5) Acute blood loss anemia: As above. Status: Acute (6) Thrombocytopenia: 40,000. Secondary to liver cirrhosis, noted mild splenomegaly. Monitor level. If hemoglobin decreases further on recheck evaluation currently, may give her platelet transfusion. Status: Acute (7) Lactic acidosis: Secondary to alcoholism and liver cirrhosis, as well as hypoperfusion with poor oral intake, dehydration, acute gastroduodenitis and colitis. Status: Acute (8) Paroxysmal atrial fibrillation with RVR: This appears to be new onset. Secondary to her medical condition. Heart rates currently down to around 110. Does not give known history of A. fib in the past. Currently not a candidate for anticoagulation. Keeping n.p.o. For now we will start metoprolol IV 2.5 mg every 4 hours PRN if HR rises as blood pressures are soft. HR is not the worst at 110. Monitor heart rates and blood pressure. Potassium was replaced in ER. Order replacement for hypomagnesemia. Appears to have minimal subclinical hypothyroidism. Treat underlying conditions as above. Expect improvement with improved anemia, gastroenteritis, colitis, pancreatitis. Assess TTE once heart rate is somewhat better. May benefit from additional assessment for coronary disease once she is stable. Status: Acute (9) Ketonuria: Suspect this is starvation ketosis secondary to liver cirrhosis and poor oral intake. She reports has not eaten anything in 4 days. Status: Acute (10) Hypokalemia: Replaced. Monitor. Replace as needed. Status: Acute (11) Hypomagnesemia: Replace. Recheck. Status: Acute (12) Alcoholism: Severe alcoholism. Last drink on 02/01. States that she drinks up to half a gallon of vodka per day. Reports that she has been to rehab 12 times previously. Reports that she gets shakes and tremors during withdrawal. Denies having withdrawal seizures in the past. At this time monitor for withdrawal. CIWA protocol, Ativan. Thiamine, folic acid. Please ask case management to assist with resources and rehabilitation options once she is more stable. Status: Acute Additional A&P Information Liver cirrhosis: No ascites noted on abdominal imaging. She denies history of ascites in the past. Denies history of gastric or esophageal varicosities. Needs to stop drinking alcohol. Discussed with her. Please continue to encourage cessation, provide resources when she stable. Continue follow-up with primary care provider for usual cirrhosis follow-up. Spironolactone, Lasix on hold. Reports she has not taken any of her medications for about a week. Smoking addiction: Discussed smoking cessation with her. Will provide nicotine replacement as needed. Severe anxiety Depression: She is to be on antidepressant, however, says that with nausea, diarrhea, and other issues has not taken any of her medications for about a week. Currently we will hold off restarting until she is more stable. Reports remembering having fluid around her heart at some point. Attestations Medical Necessity Statement*: Admission of over 2 midnights continued versus management of acute blood loss anemia with GI bleeding, gastroduodenitis, colitis, pancreatitis, in the setting of severe alcoholism, cirrhosis, thrombocytopenia, and other comorbidities. Critical Care Time: In addition to noncritical issues 45 minutes critical care time spent on assessment management of hemodynamic status, with tachycardia, A. fib with RVR, in setting of acute blood loss anemia, GI bleeding, extensive gastroduodenitis, colitis, the setting of thrombocytopenia with liver cirrhosis and heavy alcoholism. Coding Level of Care Code Acute Audio Visual Technician for [facility] Fwd Diagnoses GI bleeding K92.2 Gastroduodenitis K29.90 Colitis K52.9 Pancreatitis K85.90 Acute blood loss anemia D62 Thrombocytopenia D69.6 Lactic acidosis E87.2 Paroxysmal atrial fibrillation with RVR I48.0 Ketonuria R82.4 Hypokalemia E87.6 Hypomagnesemia E83.42 Alcoholism F10.20
[2020-02-03] MEDS: sodium chloride 0.9% 1,000 ML 100 ML IV (01:17)
--- NOTE | 2020-02-03 01:23 | CTR_ITS ---
PROCEDURE INFORMATION: Exam: CT Lumbar Spine Without Contrast Exam date and time: 02/03/2020 2:41 AM Age: 59 years old Clinical indication: Other: Bladder and bowel incontinuence; Prior surgery; Surgery date: 6+ months; Surgery type: Gb/hyst TECHNIQUE: Imaging protocol: Computed tomography images of the lumbar spine without contrast. Radiation optimization: All CT scans at this facility use at least one of these dose optimization techniques: automated exposure control; mA and/or kV adjustment per patient size (includes targeted exams where dose is matched to clinical indication); or iterative reconstruction. COMPARISON: No relevant prior studies available. RADIATION DOSE METRICS: Total DLP (mGy-cm): 2540.87 FINDINGS: Vertebrae: Couple small chronic endplate Schmorl's node cavities. Normal spinal curvature, vertebral body heights, and alignment. No spinal fracture or acute subluxation. Discs/Spinal canal/Neural foramina: Mild diffuse degenerative disc space loss with small disc bulge/protrusions causing up to mild foraminal and spinal stenosis greatest at L5-S1 with a small central disc . Soft tissues: Unremarkable. CT/CT lumbar spine wo con* [id number] IMPRESSION: 1. Mild lumbar spondylosis with a small L5-S1 central disc protrusion causes mild stenosis. 2. No acute vertebral fracture/subluxation. Radiation Dose CTDIVOL = (mGy): DLP = 2540.87 (mGy-cm)
[2020-02-03] MEDS: morphine 4 mg/mL SDV 1 mL 2 MG IVP ×3 (01:29→10:12)
[2020-02-03] MEDS: pantoprazole 40 MG in sodium chloride 0.9% (plus) 100 ML 20 MG IV ×4 (02:05→20:29)
--- NOTE | 2020-02-03 02:11 | ECG_ITS ---
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 Measurements Intervals [place] Rate: 107 P: 196 IN: 255 QRS: 32 QRSD: 97 T: 43 QT: 381 QTc: 509 Interpretive Statements ECTOPIC ATRIAL TACHYCARDIA WITH FIRST DEGREE AV BLOCK LEFT ATRIAL ENLARGEMENT [-0.15mV P WAVE IN V1/V2] LOW QRS VOLTAGE IN EXTREMITY LEADS [QRS DEFLECTION < 0.5 mV IN LIMB LEADS] Compared to ECG 02/02/2020 22:11:38 First degree AV block now present Low QRS voltage now present Atrial fibrillation no longer present Electronically Signed On 02-03-2020 22:50:00 CDT by Nida Wiggins M.D. [id number]
[2020-02-03] MEDS: magnesium sulfate premix 2 GM/50 ML PIGGYBACK IV (02:15)
[2020-02-03 03:25] LABS: Troponin 5 6HR 25.23 ng/L (0-10)
[2020-02-03 03:30] LABS: Troponin 5 6HR Delta 17.23 ng/L (0-12)
--- NOTE | 2020-02-03 03:30 | PC.NURSE ---
Dr Patel notified of high trop. orders received to repeat single trop at 0900.
--- NOTE | 2020-02-03 03:36 | PC.NURSE ---
pt states she left her dentures at home
[2020-02-03] MEDS: lanolin oint 7 gm 1 APPLIC TOPICAL (03:47)
[2020-02-03] MEDS: piperacillin-tazobactam 3.375 GM in sodium chloride 0.9% (plus) 50 ML IV ×3 (03:49→18:59)
[2020-02-03] MEDS: LORazepam 2 mg/mL INJ 1 mL IVP (04:49)
--- NOTE | 2020-02-03 04:58 | PC.NURSE ---
after finalizing assessment pt settled in bed restlessly. she told me she was afraid to go to sleep since the doctor told her she was dying. i reassured her that was not what dr chapman said and that we were monitoring her and to just relax and get some rest. atavan administered and pt is now resting well.
[2020-02-03 06:40] LABS: Basophils % 0.2 %; Eosinophils % 0.2 %; Hematocrit 29.2 % (37.0-47.0); Hemoglobin 8.7 g/dL (11.5-15.3); Lymphocytes # 0.9 10^3/uL (0.8-4.8); Lymphocytes % 16.1 %; Mean Corpuscular HGB Conc 29.8 g/dL (30.0-36.0); Mean Corpuscular Hemoglobin 28.7 pg (28.0-34.0); Mean Corpuscular Volume 96.4 fL (81-99); Mean Platelet Volume 13.4 fL (7.4-10.4); Monocytes # 0.2 10^3/uL (0.2-0.9); Monocytes % 3.6 %; Neutrophils # 4.38 10^3/uL (1.8-7.7); Neutrophils % 79.4 %; Nucleated Red Blood Cells % 0 %; Platelet Count 36 10^3/cmm (130-400); Red Blood Count 3.03 10^6/uL (4.1-5.3); Red Cell Distribution Width 16.4 % (12.1-15.1); White Blood Count 5.5 10^3/uL (4.0-10.0)
[2020-02-03 06:53] LABS: INR 1.14 (0.8-1.2)
[2020-02-03 06:55] LABS: Partial Thromboplastin Time 26.7 SECONDS (23.9-36.7)
--- NOTE | 2020-02-03 07:04 | PC.NURSE ---
visitor name is estephania elmore
[2020-02-03] MEDS: sodium chloride 0.9% (100 ml) 100 ML 50 ML (07:55)
--- NOTE | 2020-02-03 09:21 | CTR_ITS ---
PROCEDURE INFORMATION: Exam: CT Angiography Abdomen and Pelvis With Contrast Exam date and time: 02/03/2020 10:05 AM Age: 59 years old Clinical indication: Prior surgery; Surgery date: 6+ months; Surgery type: Gb, hyst; Patient HX: Gi bleed w diarrhea - HX of cirrhosis; Additional info: R/O bowel ischemia TECHNIQUE: Imaging protocol: Computed tomographic angiography of the abdomen and pelvis with intravenous contrast material. 3D rendering: MIP and/or 3D reconstructed images were created by the technologist. Radiation optimization: All CT scans at this facility use at least one of these dose optimization techniques: automated exposure control; mA and/or kV adjustment per patient size (includes targeted exams where dose is matched to clinical indication); or iterative reconstruction. Contrast material: OMNI 350; Contrast volume: 95 ml; Contrast route: INTRAVENOUS (IV); COMPARISON: CT abdomen pelvis w con* [id number] 02/02/2020 9:04 PM RADIATION DOSE METRICS: Total DLP (mGy-cm): 1200.89 FINDINGS: Aorta: No aortic aneurysm. No aortic dissection. Celiac trunk and mesenteric arteries: No occlusion or significant stenosis. Renal arteries: No occlusion or significant stenosis. Right iliac arteries: No occlusion or significant stenosis. Left iliac arteries: No occlusion or significant stenosis. Liver: Lobulated hepatic contour, prominence of the left lobe. No mass. Patent portal vein. Gallbladder and bile ducts: Cholecystectomy. Pancreas: Unremarkable. No mass. No ductal dilation. Spleen: Borderline minimal splenomegaly. Adrenals: Unremarkable. No mass. Kidneys and ureters: Unremarkable. No solid mass. No hydronephrosis. Stomach and bowel: Small bowel dilatation. Prominent bowel wall thickening in the ascending colon. Bowel wall thickening also in the duodenum and probably in the stomach. No pneumatosis. Appendix: No evidence of appendicitis. Intraperitoneal space: Minimal ascites, increased. No pneumoperitoneum or abscess. Lymph nodes: Unremarkable. No enlarged lymph nodes. Bladder: Bladder catheter. Reproductive: Hysterectomy. Bones/joints: No acute findings. Soft tissues: Unremarkable. CT/CT angio abdomen pelvis [id number] IMPRESSION: No mesenteric ischemia. Cirrhosis, ascites, splenomegaly. Ascending colitis, nonspecific small bowel distention consistent with ileus or partial small bowel obstruction. Duodenitis. Radiation Dose CTDIVOL = (mGy): DLP = 1200.89 (mGy-cm)
--- NOTE | 2020-02-03 09:43 | PM.PN ---
Subjective Subjective: Interval history: Admitted overnight. H&P and labs noted. Most of the history taken through patient's brother and sister via phone. Examination patient lying comfortably in bed. Asking for chips. Denies of any nausea. Has not had any further bloody bowel movements. Is passing flatus. States her abdominal seems distended. Complaining of mild abdominal pain. Denies of having any dizziness, palpitations, headache. Labs and vitals noted. No CMP done today morning as the sample was hemolyzed. Vitals/I&O/Wt Last Vital Signs Temp 99.2 F 02/03/20 08:15 Pulse 114 H 02/03/20 08:15 Resp 20 H 02/03/20 08:15 BP 121/66 02/03/20 08:15 Pulse Ox 98 02/03/20 08:15 02/02/20 02/03/20 02/03/20 22:59 06:59 14:59 Intake Total 271.667 / 271.667 150 / 150 Output Total 750 / 750 Balance -478.333 / -478.333 150 / 150 Weight last 48 hrs Weight 72.575 kg Weight 72.575 kg Physical Exam Narrative: EXAM NARRATIVE: General: Mild distress, AO x3, lethargic, pale HEENT: PERRLA, pupils bilaterally equal and reactive Chest: Normal vesicular breath sounds, no added sounds, equal good air entry bilaterally CVS: S1-S2 regular, no murmurs, tachycardia, no gallops, no rubs Abdomen: Distended, tender in epigastric area, bowel sounds hyperactive, tympanic Neuro: No focal deficits, no facial deformity, AO x3, power 5/5 in all limbs Data : 02/03/20 05:34 02/02/20 20:38 Micro: Microbiology 02/02/20 23:20 Blood Culture - Preliminary Blood SPECIMEN COLLECTED 02/02/20 23:13 Blood Culture - Preliminary Blood SPECIMEN COLLECTED A&P Assessment and plan (1) Acute blood loss anemia: Status: Acute (2) GI bleeding: Status: Acute (3) Gastroduodenitis: Status: Acute (4) Colitis: Status: Acute (5) Pancreatitis: Lipase elevation just borderline to suggest acute pancreatitis. She reports history of pancreatitis in the past. CT abdomen pelvis without obvious signs of pancreatitis or CBD dilation. No stones. At this time supportive care for pain, IV hydration. Continue to encourage alcohol intake cessation. Status: Acute (6) Lactic acidosis: Secondary to alcoholism and liver cirrhosis, as well as hypoperfusion with poor oral intake, dehydration, acute gastroduodenitis and colitis. Status: Acute (7) High anion gap metabolic acidosis: Status: Acute (8) Paroxysmal atrial fibrillation with RVR: Status: Acute (9) Alcoholism: Status: Acute (10) Thrombocytopenia: 40,000. Secondary to liver cirrhosis, noted mild splenomegaly. Monitor level. If hemoglobin decreases further on recheck evaluation currently, may give her platelet transfusion. Status: Acute (11) Ketonuria: Suspect this is starvation ketosis secondary to liver cirrhosis and poor oral intake. She reports has not eaten anything in 4 days. Status: Acute (12) Hypokalemia: Replaced. Monitor. Replace as needed. Status: Acute (13) Hypomagnesemia: Replace. Recheck. Status: Acute Additional A&P Information GI bleed/acute blood loss anemia: Gastroduodenitis/colitis: She reports ibuprofen intake, but also is a very heavy drinker, with about half a gallon of alcohol per day. Suspect alcohol-related gastroduodenitis. Colitis. Cannot rule out infectious/ischemic colitis because of persistent elevated lactate and current A. fib. Continue ICU care. Chronic alcohol consumption: Hemoglobin 8.7. We do not have a baseline. Patient continues to have hematochezia before coming to the hospital for last 5 to 7 days. No bloody bowel movement since admission. Patient getting 1 unit of PRBC. Hemoglobin hematocrit every 6 hours after completing transfusion. CT abdomen results appreciated. Patient's lactate continues to remain around 5. We will do CT angios abdominal to rule out ischemia. Check DIC panel. Continue with Protonix drip. If patient has 1 more bloody bowel movement for any varices on the CT scan and liver ultrasound will start on octreotide drip. Continue with Zosyn for now. At renal dose. Stool studies awaited to rule out infectious or C. difficile colitis. Case discussed with Dr. Cosby. Patient most likely requires EGD and colonoscopy during this admission. He would like to hold off and continue antibiotics for at least 48 hours before taking her to the lab. If patient deteriorates we will plan to do sooner. Chronic alcoholism: Liver cirrhosis: No ascites noted on abdominal imaging. She denies history of ascites in the past. Denies history of gastric or esophageal varicosities. Needs to stop drinking alcohol. Discussed with her. We will consult social problems specialist for possible discharge to alcohol addiction program. The same has been requested by the family as well. At home patient takes spironolactone and furosemide. Given acute decompensation will continue holding off on the same. if blood pressure remain stable we will start patient on Lopressor. Ativan as per [facility] protocol. IV thiamine. Oral folic acid. Does not have history of seizures/DTs in the past. High anion gap public acidosis: Most likely because of lactic acidosis. Ketonuria present. Creatinine stable. Start patient on D5 NS at 100 cc/h. We will watch for refeeding syndrome. Potassium repleted last night. CMP from today morning still awaited. Paroxysmal A. fib:This appears to be new onset. Secondary to her medical condition. Heart rates currently down to around 110. Does not give known history of A. fib in the past. Currently not a candidate for anticoagulation because of ongoing bleed. Patient started on ice chips through surgery. We will start patient on oral Lopressor 12.5 mg twice daily. Will titrate medications according to the blood pressure. Echocardiogram has been ordered. Smoking addiction: Discussed smoking cessation with her. Will provide nicotine replacement as needed. Severe anxiety Depression: She is to be on antidepressant, however, says that with nausea, diarrhea, and other issues has not taken any of her medications for about a week. Currently we will hold off restarting until she is more stable. TSH on today's morning labs normal though free T4 is on the lower side. We will also check free T3 and if lower will start on low-dose levothyroxine. Case discussed with patient's brother Abe who states he was the appointed guardian to fever was not present. Also discussed with patient's sister. They both state that patient was recently in [facility] in [facility] for alcohol addiction. She was discharged from there and has been living in an apartment. Usually their other sister goes up and checks on her. They also state that she has been to multiple alcohol addiction rehabilitation centers in the past. Did discuss with them if unfortunately patient decompensates start having multiple episodes of bloody bowel movements or found to have varices on the examination would most likely have to transfer the patient to a tertiary center as semiconductor wafers tester is not available at the hospital. Once patient is more stable will do physical therapy evaluation. Patient states she would want to be full code and would want ET tube and chest compressions if required. N.p.o. except ice chips and medications. Hold off on anticoagulation because of ongoing blood loss anemia. SCDs. Guarded prognosis. Attestations Medical Necessity Statement*: Acute blood loss anemia due to GI bleed, chronic alcoholism, severe gastroduodenitis, colitis Time Spent in Patient Care: Greater than 35 minutes (>than 50% of time spent in counselling and/or direct pt care on unit). Coding Level of Care Code Acute Carroter for [facility] Fwd Diagnoses Acute blood loss anemia D62 GI bleeding K92.2 Gastroduodenitis K29.90 Colitis K52.9 Pancreatitis K85.90 Lactic acidosis E87.2 High anion gap metabolic acidosis E87.2 Paroxysmal atrial fibrillation with RVR I48.0 Alcoholism F10.20 Thrombocytopenia D69.6 Ketonuria R82.4 Hypokalemia E87.6 Hypomagnesemia E83.42
[2020-02-03 10:04] LABS: INR 1.14 (0.8-1.2)
[2020-02-03 10:13] LABS: Partial Thromboplastin Time 28.2 SECONDS (23.9-36.7)
[2020-02-03 10:14] LABS: Fibrinogen 292 mg/dL (184-529)
[2020-02-03 10:23] LABS: D Dimer 6.23 ug/mIFEU (0-0.59)
[2020-02-03] MEDS: iohexol 350 mg/mL 100 mL Btl IV (10:38)
--- NOTE | 2020-02-03 10:50 | PC.NURSE ---
Pt to CT and back to ICU. Blood transfusion interrupted fr 5-10 minutes for CTA infusion.
[2020-02-03] MEDS: dextrose 5%-sod chloride 0.9% 1,000 ML 100 ML IV ×2 (10:53→20:31)
[2020-02-03] MEDS: folic acid 1 mg Tablet PO (10:54)
[2020-02-03] MEDS: LORazepam 2 mg Tablet PO ×2 (11:59→16:23)
--- NOTE | 2020-02-03 13:35 | P.CONIM_ITS ---
Providers/Reason For Consult Consulting Physican/Specialty*: Dr. Man Reason for Consult*: Hematochezia Attending Physician: Kendall Petit MD History of Present Illness History of Present Illness Gely Jimenez is a 59 year old female who presented to the ER last night with 1 week history of fresh blood per rectum. Patient is a known alcoholic and drinks about a half a gallon of vodka every night. Patient states that she knows about her cirrhosis and has been diagnosed with ulcers in the past. She has had a prior EGD as well as a colonoscopy done about 10 years ago. At present she denies any abdominal pain, nausea, vomiting. CT scan in the ER showed edema of the stomach duodenum and colon. She is not had any further bleeding since admission to the hospital and she is currently on IV Zosyn Review of Systems General: Reports: 10 or more systems reviewed and unremarkable except in HPI and below Meds/Allergies Home Medications and Allergies Home Medications Medication Instructions Recorded Confirmed Last Taken Type furosemide 40 mg tablet 40 mg PO DAILY 01/04/20 01/04/20 Unknown History gabapentin 300 mg capsule 300 mg PO DAILY 01/04/20 01/04/20 Unknown History spironolactone 100 mg tablet 100 mg PO DAILY 01/04/20 01/04/20 Unknown History venlafaxine 150 mg 150 mg PO DAILY 01/04/20 01/04/20 Unknown History capsule,extended release 24 hr Allergies Allergy/AdvReac Type Severity Reaction Status Date / Time No Known Allergies Allergy Verified 02/02/20 20:22 Current Medications Current Medications Generic Name Dose Route Start Last Admin Trade Name John Paulq PRN Reason Stop Dose Admin Folic Acid 1 mg 02/03/20 09:00 02/03/20 10:54 Folic Acid PO 1 mg DAILY DESTINY Administration Pantoprazole Sodium 40 mg/ 100 mls @ 20 mls/hr 02/03/20 02:00 02/03/20 08:00 Sodium Chloride IV 8 mg/hr .Q5H DESTINY 20 mls/hr Administration 8 MG/HR Dextrose/Sodium Chloride 1,000 mls @ 100 mls/hr 02/03/20 09:45 02/03/20 10:53 Dextrose 5%-Sod Chloride 0.9% IV 100 mls/hr .Q10H DESTINY Administration Piperacillin Sod/Tazobactam 50 mls @ 12.5 mls/hr 02/03/20 10:00 02/03/20 10:57 Sod 3.375 gm/ Sodium Chloride IV 12.5 mls/hr Q8H DESTINY Administration Protocol Lanolin 1 applic 02/03/20 03:37 02/03/20 03:47 Lanolin Oint TOPICAL 1 applic PRN PRN Administration DRYNESS Lorazepam 2 mg 02/03/20 01:54 02/03/20 04:49 Ativan IVP 2 mg PRN PRN Administration WITHDRAWAL Protocol Lorazepam 2 mg 02/03/20 01:54 02/03/20 11:59 Ativan PO 2 mg Q4H PRN Administration WITHDRAWAL Protocol Morphine Sulfate 2 mg 02/03/20 01:09 02/03/20 10:12 Morphine IVP 2 mg Q4H PRN Administration SEVERE PAIN Thiamine HCl 100 mg 02/03/20 09:25 02/03/20 10:54 Vitamin B-1 IV 100 mg DAILY DESTINY Administration PFSH Acute PFSH: Medical History Alcoholism Anxiety Depression Eating disorder Liver cirrhosis Surgical History History of esophagogastroduodenoscopy (EGD) S/P cholecystectomy Family History Other Cancer Social History Smoking and tobacco status: current every day smoker cigarettes Number of cigarettes per day: 1-5 Alcohol intake: never Substance/Drug Use: never Lives independently: Yes Household members: none Marital status: Current occupational status: unemployed Current gender identity: Female Vitals/I&O/Wt Last Vital Signs Temp 99 F 02/03/20 11:05 Pulse 111 H 02/03/20 11:05 Resp 23 H 02/03/20 11:05 BP 121/66 02/03/20 08:15 Pulse Ox 97 02/03/20 11:05 02/02/20 02/03/20 02/03/20 22:59 06:59 14:59 Intake Total 271.667 / 271.667 500 / 500 Output Total 750 / 750 Balance -478.333 / -478.333 500 / 500 Weight last 48 hrs Weight 160 lb Weight 160 lb Physical Exam Narrative: EXAM NARRATIVE: HEENT: Normocephalic Eye: Sclera /conjunctiva normal Abdomen: Soft to palpation, nontender, distended Neurological: Oriented to place person and time Skin: Intact, no lesions appreciated on gross exam Urinary Catheter Management^: Lainez: Cath Placed During This Visit: no Reason for Continuing Indwelling Catheter: Accurate Measurement of Urinary Output in Critically Ill Patients Data Micro: Micro: Microbiology 02/02/20 23:20 Blood Culture - Pr eliminary Blood SPECIMEN [facility] BHAVANI 02/02/20 23:13 Blood Culture - Pr eliminary Blood SPECIMEN [facility] A&P Assessment and plan (1) GI bleedin-year-old female with hematochezia who is a known alcoholic. No known history of varices and she is not had any hematemesis or melena. She can currently be managed conservatively with PPI and IV antibiotics. 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
[2020-02-03 16:06] LABS: Lactate (Lactic Acid level) 2.2 mmol/L (0.5-2.2)
[2020-02-03] MEDS: metoprolol tartrate 25 mg Tablet 12.5 MG PO (16:16)
[2020-02-03 16:31] LABS: Magnesium 1.6 mg/dL (1.7-2.3)
[2020-02-03 16:34] LABS: Troponin T (5th) Once 11 ng/L (0-10)
[2020-02-03 16:41] LABS: Alanine Aminotransferase 28 U/L (0-33); Albumin Level 3.2 g/dL (3.5-5.2); Alkaline Phosphatase 170 IU/L (35-105); Anion Gap 25.2 (5-19); Aspartate Amino Transferase 49 U/L (0-32); Blood Urea Nitrogen 5 mg/dL (6-20); Calcium 6.1 mg/dL (8.5-10.5); Carbon Dioxide 12 mmol/L (22-29); Chloride 101 mmol/L (98-107); Globulin 2.3 g/dL (1.3-4.6); Glucose 128 mg/dL (65-115); Osmolality Calculated 277 mOsm/kg (285-295); Potassium 3.2 mmol/L (3.5-5.1); Sodium 135 mmol/L (136-145); T3 Free 1.5 PG/ML (2.0-4.4); Total Bilirubin 0.7 mg/dL (0.15-1.2); Total Protein 5.5 g/dL (6.6-8.7)
--- NOTE | 2020-02-03 19:46 | PC.NURSE ---
Shift summary: Pt has spent most of the day sleeping. She opens her eyes long enough to ask for pain med or a drink. Per Dr Cosby she can have a small amount of ice chips. VSS. Home meds still need to be reconciled. This nurse found a large duffel bag full in her room closet. She received 1 unit PRBC, hgb now 9. She has been on a Protonix gtt throughout the day. No emesis or BMs noted today. She has required Ativan twice day shift per LUKEWA. She has had 1800ml clear yellow urine output. Plan is to get Hgb stabilized and then get an EGD and/or colonoscopy.
[2020-02-03 23:45] LABS: Hemoglobin 8.3 g/dL (11.5-15.3)
[2020-02-04] VITALS (12 sets, daily range): BP systolic 90–123; BP diastolic 48–72; PULSE 88–113; RESP 11–22; TEMP 36.7–37.2; O2SAT 92–98
[2020-02-04] MEDS: LORazepam 2 mg/mL INJ 1 mL IVP (02:14)
[2020-02-04] MEDS: pantoprazole 40 MG in sodium chloride 0.9% (plus) 100 ML 20 MG IV ×2 (03:13→05:44)
[2020-02-04] MEDS: piperacillin-tazobactam 3.375 GM in sodium chloride 0.9% (plus) 50 ML IV ×3 (03:13→17:42)
--- NOTE | 2020-02-04 05:13 | PC.NURSE ---
patient has become increasingly agitated today.with more and more confusion noted. patient is easily re orientated. patients brother called to get update and inquire about after discharge, what will patient do, about living arrangement. brother would like for patient to be place usp for a while after discharge to continue to stay off of alcohol. patient currently on CIWA scale
[2020-02-04 05:21] LABS: Alanine Aminotransferase 25 U/L (0-33); Albumin Level 2.8 g/dL (3.5-5.2); Alkaline Phosphatase 168 IU/L (35-105); Anion Gap 15.8 (5-19); Aspartate Amino Transferase 36 U/L (0-32); Blood Urea Nitrogen 3 mg/dL (6-20); Carbon Dioxide 21 mmol/L (22-29); Chloride 104 mmol/L (98-107); Globulin 2.3 g/dL (1.3-4.6); Glucose 155 mg/dL (65-115); Osmolality Calculated 285 mOsm/kg (285-295); Sodium 138 mmol/L (136-145); Total Bilirubin 0.7 mg/dL (0.15-1.2); Total Protein 5.1 g/dL (6.6-8.7)
[2020-02-04 05:28] LABS: Magnesium 1.6 mg/dL (1.7-2.3)
[2020-02-04] MEDS: dextrose 5%-sod chloride 0.9% 1,000 ML 100 ML IV ×2 (05:45→14:37)
[2020-02-04 05:56] LABS: Potassium 2.8 mmol/L (3.5-5.1)
[2020-02-04 05:58] LABS: Phosphorus 0.7 mg/dL (2.5-4.5)
--- NOTE | 2020-02-04 06:00 | USCV_ITS ---
Jimenez Gely Age: 59 Gender: F : 1960 Exam Date: 02/04/2020 14:51 Ordering Phys: Vadim Mcconnell MD Technologist: Jasmyn Guillermo Exam Location: [facility] [place] Indication: New atrial fibrillation BP: 93 / 55 HR: 94 Rhythm: Sinus Technical Quality: Fair MEASUREMENTS (Male / Female) Normal Values 2D ECHO LV Diastolic Diameter PLAX 4.1 cm 4.2 - 5.9 / 3.9 - 5.3 cm LV Systolic Diameter PLAX 1.7 cm LV Chamber Size 3.7 cm IVS Diastolic Thickness 1.2 cm 0.6 - 1.0 / 0.6 - 0.9 cm IVS Systolic Thickness 1.7 cm LVPW Diastolic Thickness 1.2 cm 0.6 - 1.0 / 0.6 - 0.9 cm LVPW Systolic Thickness 1.8 cm RV Chamber Size 2.2 cm LVOT Diameter 1.8 cm LV Ejection Fraction 2D Teich 87.9 % LV Ejection Fraction MOD 2C 63.0 % LV Ejection Fraction 2C AL 63.6 % LA Diameter 3.8 cm LA Width 2.4 cm LA Height 4.0 cm RA Width 2.9 cm RA Height 3.6 cm Aorta at Sinotubular Diameter 2.6 cm M-MODE LV Diastolic Diameter MM 4.4 cm 4.2 - 5.9 / 3.9 - 5.3 cm LV Systolic Diameter MM 2.8 cm LV Ejection Fraction MM Teich 65.7 % IVS Diastolic Thickness MM 1.2 cm 0.6 - 1.0 / 0.6 - 0.9 cm IVS Systolic Thickness MM 1.6 cm LVPW Diastolic Thickness MM 1.4 cm 0.6 - 1.0 / 0.6 - 0.9 cm LVPW Systolic Thickness MM 1.7 cm RV Diastolic Diameter MM 2.1 cm Aortic Annulus Diameter 3.2 cm LA Ao Ratio MM 1.2 MV E Point Septal Separation 0.3 cm DOPPLER AV Peak Velocity 157.0 cm/s LVOT Peak Velocity 108.0 cm/s AV Area Cont Eq vti 1.6 cm squared AV Area Cont Eq pk 1.8 cm squared MV Area PHT 3.9 cm squared Mitral E to A Ratio 0.7 MV E' Velocity 14.0 cm/s Mitral E to MV E' Ratio 5.5 Mitral E to LV E' Lateral Ratio 5.3 Mitral E to LV E' Septal Ratio 5.8 TV Peak E Velocity 86.0 cm/s Right Atrial Pressure 15.0 mmHg PV Peak Velocity 90.0 cm/s RV Acceleration Time 0.1 s RV Ejection Time 0.2 s RV AcT/ET 0.4 FINDINGS Left Ventricle Normal left ventricular cavity size. Normal left ventricular systolic function. No regional wall motion abnormalities. Left ventricular ejection fraction is estimated at 65 %. Grade I/IV diastolic dysfunction (abnormal relaxation filling pattern), normal to mildly elevated filling pressures. Right Ventricle The right ventricle is normal in size and function. Right Atrium The right atrium is normal in size. Left Atrium The left atrium is normal in size. Mitral Valve Structurally normal mitral valve without significant stenosis or prolapse. There is no mitral regurgitation. Aortic Valve Structurally normal aortic valve without significant sclerosis or stenosis. There is no aortic regurgitation. Tricuspid Valve Structurally normal tricuspid valve without significant stenosis or regurgitation. Pulmonary artery systolic pressure is normal. Pulmonic Valve Structurally normal pulmonic valve without significant stenosis. There is no pulmonic regurgitation. Pericardium Normal pericardium without effusion. Aorta Normal ascending aorta dimension. CONCLUSIONS 1-Normal left ventricular cavity size. Normal left ventricular systolic function. No regional wall motion abnormalities. Left ventricular ejection fraction is estimated at 65 %. Grade I/IV diastolic dysfunction (abnormal relaxation filling pattern), normal to mildly elevated filling pressures. 2-Aortic valve sclerosis without stenosis or regurgitation. 3-There is no pericardial effusion. 4-No significant valve abnormalities. 5-Right atrial pressure is around 5 mm of mercury. 6-There are no prior echocardiogram studies to compare. Nida Wiggins MD (Electronically Signed) Final Date: 04 February 2020 17:34 S
[2020-02-04 06:33] LABS: Hematocrit 25.4 % (37.0-47.0); Hemoglobin 8.1 g/dL (11.5-15.3); Lymphocytes # 0.4 10^3/uL (0.8-4.8); Lymphocytes % 19.3 %; Mean Corpuscular HGB Conc 31.9 g/dL (30.0-36.0); Mean Corpuscular Hemoglobin 28.9 pg (28.0-34.0); Mean Corpuscular Volume 90.7 fL (81-99); Mean Platelet Volume 12.7 fL (7.4-10.4); Monocytes # 0.1 10^3/uL (0.2-0.9); Monocytes % 5.1 %; Neutrophils # 1.44 10^3/uL (1.8-7.7); Neutrophils % 73.1 %; Red Cell Distribution Width 16.1 % (12.1-15.1)
[2020-02-04 06:58] LABS: Slide Review Slide Review Perform
[2020-02-04 06:59] LABS: Platelet Count 26 10^3/cmm (130-400)
--- NOTE | 2020-02-04 08:00 | PC.NURSE ---
Pt belligenrent this am. She cannot remober the day or date today, she could yesterday. She thinks she has been here for a week.
[2020-02-04] MEDS: metoprolol tartrate 25 mg Tablet 12.5 MG PO ×2 (08:19→17:42)
[2020-02-04] MEDS: folic acid 1 mg Tablet PO (08:19)
[2020-02-04] MEDS: LORazepam 2 mg Tablet PO ×2 (08:19→12:09)
--- NOTE | 2020-02-04 08:20 | PM.PN ---
Subjective Subjective: Interval history: No issues overnight except for agitation. No further bowel movements or hematochezia or hematemesis. Patient denies any abdominal pain Vitals/I&O/Wt Last Vital Signs Temp 98.5 F 02/04/20 06:00 Pulse 106 H 02/04/20 06:00 Resp 20 H 02/04/20 06:00 BP 93/55 02/04/20 06:00 Pulse Ox 94 02/04/20 02:00 02/03/20 02/04/20 02/04/20 22:59 06:59 14:59 Intake Total 1254.333 / 4286.999 1132.666 / 4286.999 50 / 50 Output Total 400 / 3100 900 / 3100 340 / 340 Balance 854.333 / 1186.999 232.666 / 1186.999 -290 / -290 Weight last 48 hrs Weight 160 lb Weight 160 lb Physical Exam Narrative: EXAM NARRATIVE: Abdomen: Soft, distended, nontender Urinary Catheter Management^: Lainez: Cath Placed During This Visit: no Reason for Continuing Indwelling Catheter: Accurate Measurement of Urinary Output in Critically Ill Patients Data : 02/04/20 06:16 02/04/20 04:35 Micro: Microbiology 02/02/20 23:20 Blood Culture - Preliminary Blood NEGATIVE TO DATE 02/02/20 23:13 Blood Culture - Preliminary Blood NEGATIVE TO DATE A&P Assessment and plan (1) GI bleedin-year-old female who is an alcoholic who presents with hematochezia. CT scan showed colitis/duodenitis with cirrhosis splenomegaly and ascites No evidence of active bleeding, hemoglobin stable around 8 after receiving a unit Patient's platelets down to 26, will hold off on any endoscopy at this point due to high bleeding risk unless there is any evidence of active bleeding that requires intervention. Status: Acute Attestations Medical Necessity Statement*: GI bleed requiring continued inpatient stay Coding Level of Care Code Acute Universal Winding Machine Operator for [facility] Diagnoses GI bleeding K92.2
--- NOTE | 2020-02-04 10:15 | P.PN_ITS ---
Subjective Subjective: Interval history: No events overnight. Patient has not had any further bloody bowel movements. She did have a small bowel today morning. Denies having nausea, vomiting, headache. She complains of feeling weird all over her body. She describes diet as generalized discomfort. Denies of having any loss of sense of taste or smell. Remains afebrile and hemodynamically stable. Vitals/I&O/Wt Last Vital Signs Temp 98.5 F 02/04/20 06:00 Pulse 106 H 02/04/20 06:00 Resp 20 H 02/04/20 06:00 BP 93/55 02/04/20 06:00 Pulse Ox 94 02/04/20 02:00 02/03/20 02/04/20 02/04/20 22:59 06:59 14:59 Intake Total 1254.333 / 3154.333 1132.666 / 4286.999 50 / 50 Output Total 400 / 2200 900 / 3100 340 / 340 Balance 854.333 / 954.333 232.666 / 1186.999 -290 / -290 Weight last 48 hrs Weight 72.575 kg Weight 72.575 kg Physical Exam Narrative: EXAM NARRATIVE: General: Mild distress, AO x3, lethargic, pale HEENT: PERRLA, pupils bilaterally equal and reactive Chest: Normal vesicular breath sounds, no added sounds, equal good air entry bilaterally CVS: S1-S2 regular, no murmurs, tachycardia, no gallops, no rubs Abdomen: Distended, tender in epigastric area, bowel sounds hyperactive, tympanic Neuro: No focal deficits, no facial deformity, AO x3, power 5/5 in all limbs Urinary Catheter Management^: Lainez: Cath Placed During This Visit: no Reason for Continuing Indwelling Catheter: Accurate Measurement of Urinary Output in Critically Ill Patients Data : 02/04/20 06:16 02/04/20 04:35 Micro: Microbiology 02/02/20 23:20 Blood Culture - Preliminary Blood NEGATIVE TO DATE 02/02/20 23:13 Blood Culture - Preliminary Blood NEGATIVE TO DATE A&P Assessment and plan (1) Acute blood loss anemia: Status: Acute (2) GI bleeding: Status: Acute (3) Gastroduodenitis: Status: Acute (4) Colitis: Status: Acute (5) Pancreatitis: Lipase elevation just borderline to suggest acute pancreatitis. She reports history of pancreatitis in the past. CT abdomen pelvis without obvious signs of pancreatitis or CBD dilation. No stones. At this time supportive care for pain, IV hydration. Continue to encourage alcohol intake cessation. Status: Acute (6) Lactic acidosis: Secondary to alcoholism and liver cirrhosis, as well as hypoperfusion with poor oral intake, dehydration, acute gastroduodenitis and colitis. Status: Acute (7) High anion gap metabolic acidosis: Status: Acute (8) Alcoholism: Status: Acute (9) Thrombocytopenia: 40,000. Secondary to liver cirrhosis, noted mild splenomegaly. Monitor level. If hemoglobin decreases further on recheck evaluation currently, may give her platelet transfusion. Status: Acute (10) Refeeding syndrome: Status: Acute (11) Hypokalemia: Replaced. Monitor. Replace as needed. Status: Acute (12) Hypomagnesemia: Replace. Recheck. Status: Acute (13) Hypophosphatemia: Status: Acute (14) Ketonuria: Suspect this is starvation ketosis secondary to liver cirrhosis and poor oral intake. She reports has not eaten anything in 4 days. Status: Acute (15) Paroxysmal atrial fibrillation with RVR: Status: Acute Additional A&P Information GI bleed/acute blood loss anemia: Gastroduodenitis/colitis: She reports ibuprofen intake, but also is a very heavy drinker, with about half a gallon of alcohol per day. Suspect alcohol-related gastroduodenitis. Colitis. Cannot rule out infectious/ischemic colitis because of persistent elevated lactate and current A. fib. Continue ICU care. Chronic alcohol consumption: Hemoglobin stable. Has not had any further bloody bowel movements. Over has received [address] abdomen pelvis with contrast negative for any ischemia. We will transition from Protonix drip to 80 mg twice daily. Continue with Zosyn for now. At renal dose. Stool studies awaited to rule out infectious or C. difficile colitis. Case discussed with Dr. Cosby. Patient most likely requires EGD and colonoscopy during this admission. He would like to hold off because of thrombo cytopenia and continue antibiotics for at least 48 hours before taking her to the lab. If patient deteriorates we will plan to do sooner. Thrombocytopenia: Platelet count is trending down. Most likely because of chronic alcoholism. Patient is not having any active bleeding. If patient has further bleeding will transfuse more units of PRBC and platelets at that point. Continue to monitor. Chronic alcoholism: Liver cirrhosis: No ascites noted on abdominal imaging. She denies history of ascites in the past. Denies history of gastric or esophageal varicosities. Needs to stop drinking alcohol. Discussed with her. We will consult child welfare social worker for possible discharge to alcohol addiction program. The same has been requested by the family as well. At home patient takes spironolactone and furosemide. Given acute decompensation will continue holding off on the same. Continue Lopressor 12.5 mg twice daily. Ativan as per [facility] protocol. IV thiamine. Oral folic acid. Does not have history of seizures/DTs in the past. Anxiety: Most likely patient is withdrawing from multiple medications which she takes at home. Medical reconciliation done today. We will start on home dose of trazodone, topiramate, aripiprazole. Continue to monitor. High anion gap public acidosis: Resolved. Most likely because of lactic acidosis. Ketonuria present. Creatinine stable. Continue with D5 NS 100 cc/h. Refeeding syndrome: Patient has hypophosphatemia, hypocalcemia, hypo-[place] anemia, hypokalemia today. We will replete all. We will continue to monitor daily. Paroxysmal A. fib:This appears to be new onset. Secondary to her medical condition. Heart rates currently down to around 110. Does not give known history of A. fib in the past. Currently not a candidate for anticoagulation because of ongoing bleed. Patient started on ice chips through surgery. Lopressor 12.9 mg twice daily. Echocardiogram results awaited. Smoking addiction: Discussed smoking cessation with her. Will provide nicotine replacement as needed. Severe anxiety Depression: She is to be on antidepressant, however, says that with nausea, diarrhea, and other issues has not taken any of her medications for about a week. Currently we will hold off restarting until she is more stable. Hypothyroidism: Start patient on levothyroxine 25 mcg daily. We will most likely repeat TSH, free T3, free T4 in next 6 months. Case discussed with patient's brother Abe who states he was the appointed guardian to fever was not present. Also discussed with patient's sister. They both state that patient was recently in [facility] in [facility] for alcohol addiction. She was discharged from there and has been living in an apartment. Usually their other sister goes up and checks on her. They also state that she has been to multiple alcohol addiction rehabilitation centers in the past. Did discuss with them if unfortunately patient decompensates start having multiple episodes of bloody bowel movements or found to have varices on the examination would most likely have to transfer the patient to a tertiary center as sales agent financial report service is not available at the hospital. Once patient is more stable will do physical therapy evaluation. Patient states she would want to be full code and would want ET tube and chest compressions if required. N.p.o. except ice chips and medications. Hold off on anticoagulation because of ongoing blood loss anemia. SCDs. Transfer to floors for further management. Guarded prognosis. Attestations Medical Necessity Statement*: Refeeding syndrome, duodenitis, colitis, blood loss anemia, thrombocytopenia Time Spent in Patient Care: Greater than 35 minutes (>than 50% of time spent in counselling and/or direct pt care on unit) . Coding Level of Care Code Acute Kiln Door Repairer for Riley Mahmood Diagnoses Acute blood loss anemia D62 GI bleeding K92.2 Gastroduodenitis K29.90 Colitis K52.9 Pancreatitis K85.90 Lactic acidosis E87.2 High anion gap metabolic acidosis E87.2 Alcoholism F10.20 Thrombocytopenia D69.6 Refeeding syndrome E87.8 Hypokalemia E87.6 Hypomagnesemia E83.42 Hypophosphatemia E83.39 Ketonuria R82.4 Paroxysmal atrial fibrillation with RVR I48.0
[2020-02-04] MEDS: potassium chloride premix 40 MEQ/100 ML PREMIX 25 MEQ IV (11:48)
[2020-02-04] MEDS: pantoprazole 40 mg SDV 80 MG IVP ×2 (11:52→23:21)
[2020-02-04] MEDS: magnesium sulfate premix 2 GM/50 ML PIGGYBACK IV (11:59)
[2020-02-04] MEDS: levothyroxine 25 mcg Tablet PO (12:05)
[2020-02-04] MEDS: gabapentin 100 mg Capsule 200 MG PO ×3 (12:05→20:43)
[2020-02-04] MEDS: potassium chloride ER 10 mEq Tablet 80 MEQ PO (12:06)
[2020-02-04] MEDS: ARIPiprazole 2 mg Tablet PO (12:07)
[2020-02-04 16:29] LABS: LAB Peripheral Smear Sent for Review
[2020-02-04] MEDS: phosphorus 250 mg Tablet PO (17:43)
[2020-02-04] MEDS: magnesium oxide 400 mg tablet PO (17:43)
[2020-02-04] MEDS: calcium carbonate 500 mg Chew Tablet PO (17:43)
--- NOTE | 2020-02-04 20:18 | PC.NURSE ---
Sift summary: Per pt she thinks she needs to leave today, noting is being done for her. Pt has refused lab draws several times today. Her electrolytes were low, she has had multiple replacements IV and PO.( See MAR) She has tolerated being on room air well, O2 sats > 90%. She has purposefully removed 2 IVs today and 1 IV has infiltrated. She is a very difficult stick, US used, 6 attempts for IV this evening. Pt has multiple bruises o her arms from medical care and low platelets. This evening she stated she was feeling better and she was in her right mind so she wanted to leave again. She then decided to stay. Lainez cath removed. She had 2 Bm that consisted of 1 hard piece covered in mucous each. Stool sample sent to lab. Family called, brother Abe and a niece on speakerphone they requested Cardiovascular Lab Director to get involved as they do not think she can go back to that apartment, which she doesn't know yet. They continued they did not want her homeless , or living on street. Wants hospital to make arrangements for her living quarters at discharge. They stated they nor any of the other friends or family will be coming to [facility] to pick her up.
[2020-02-04] MEDS: morphine 4 mg/mL SDV 1 mL 2 MG IVP (20:44)
[2020-02-04] MEDS: trazodone 100 mg Tablet PO (20:44)
[2020-02-05] VITALS (20 sets, daily range): BP systolic 89–164; BP diastolic 48–112; PULSE 90–129; RESP 15–24; TEMP 36.5–37; O2SAT 97–100; BMI 28.3
[2020-02-05] MEDS: dextrose 5%-sod chloride 0.9% 1,000 ML 100 ML IV ×2 (04:46→20:22)
[2020-02-05] MEDS: piperacillin-tazobactam 3.375 GM in sodium chloride 0.9% (plus) 50 ML IV ×3 (04:47→18:29)
[2020-02-05 04:56] LABS: Eosinophils % 1.2 %; Lymphocytes # 0.5 10^3/uL (0.8-4.8); Lymphocytes % 29.2 %; Mean Corpuscular Hemoglobin 29.4 pg (28.0-34.0); Mean Corpuscular Volume 91.9 fL (81-99); Mean Platelet Volume 12.2 fL (7.4-10.4); Monocytes # 0.1 10^3/uL (0.2-0.9); Neutrophils # 1.06 10^3/uL (1.8-7.7); Nucleated Red Blood Cells % 0 %; Positive C 1; Red Blood Count 2.72 10^6/uL (4.1-5.3); Red Cell Distribution Width 17.2 % (12.1-15.1); White Blood Count 1.7 10^3/uL (4.0-10.0)
[2020-02-05 05:06] LABS: INR 1.11 (0.8-1.2)
[2020-02-05 05:17] LABS: Lactic Sepsis W/Reflex 0.9 mmol/L (0.5-2.2)
[2020-02-05 05:18] LABS: Alanine Aminotransferase 29 U/L (0-33); Albumin Level 2.9 g/dL (3.5-5.2); Alkaline Phosphatase 167 IU/L (35-105); Anion Gap 13.1 (5-19); Aspartate Amino Transferase 48 U/L (0-32); Blood Urea Nitrogen 2 mg/dL (6-20); Calcium 6.5 mg/dL (8.5-10.5); Carbon Dioxide 21 mmol/L (22-29); Chloride 109 mmol/L (98-107); Globulin 2.7 g/dL (1.3-4.6); Glomerular Filtration Rate 229.3 mL/min (90-130); Glucose 110 mg/dL (65-115); Osmolality Calculated 286 mOsm/kg (285-295); Potassium 3.1 mmol/L (3.5-5.1); Sodium 140 mmol/L (136-145); Total Bilirubin 0.6 mg/dL (0.15-1.2); Total Protein 5.6 g/dL (6.6-8.7)
[2020-02-05 05:19] LABS: Magnesium 1.9 mg/dL (1.7-2.3); Phosphorus 1.1 mg/dL (2.5-4.5)
[2020-02-05 05:36] LABS: Platelet Count 17 10^3/cmm (130-400); Slide Review Slide Review Perform
[2020-02-05] MEDS: morphine 4 mg/mL SDV 1 mL 2 MG IVP ×2 (07:46→16:45)
--- NOTE | 2020-02-05 08:04 | PC.NURSE ---
0.5 mL of morphine wasted in med room and witnessed by Critsian Amador RN. director of acquisitions at bedside. Reassessed pain and pt rated pain at a 5 after med administration. Aided pt in changing positions to try and alleviate pain. Pt laying in bed, lights off, bed low and locked with table in reach while watching TV. Room visible from nurses station. Will reassess pain level in 30 mins while rounding on pt, unless prompted to do otherwise before.
--- NOTE | 2020-02-05 08:31 | P.PN_ITS ---
Subjective Subjective: Interval history: Gely reports she hurts all over mainly in her extremities. Sitter is present with her and reports she has some confusion. She did have a bowel movement this morning. I am waiting to talk with the nurse regarding this and to see if any blood was in it. Stool studies are pending. Patient does report she feels better than yesterday. Medications: Reviewed: Yes Vitals/I&O/Wt Last Vital Signs Temp 98.1 F 02/05/20 05:27 Pulse 101 H 02/05/20 08:00 Resp 15 02/05/20 08:00 BP 109/54 02/05/20 06:00 Pulse Ox 98 02/05/20 08:00 02/04/20 02/05/20 02/05/20 22:59 06:59 14:59 Intake Total 609.583 / 6132.395 2179 / 2796.250 0 / 0 Output Total 900 / 2290 200 / 200 Balance -290.417 / -043.694 3282 / 506.250 -200 / -200 Weight last 48 hrs Weight 72.575 kg Physical Exam Narrative: EXAM NARRATIVE: General exam no apparent distress Cardiovascular regular rate and rhythm, no murmur Lungs clear no wheezing or crackles Abdomen is soft, positive bowel sounds. No specific tenderness. Extremities no cyanosis clubbing or edema. Urinary Catheter Management^: Lainez: Cath Placed During This Visit: yes, but has since been removed by the nurse Reason for Continuing Indwelling Catheter: Decision to DC Catheter Date Urinary Catheter Removed: 02/04/20 Time Urinary Catheter Discontinued: 12:00 Data : 02/05/20 04:34 02/05/20 04:34 A&P Assessment and plan (1) Acute blood loss anemia: Hemoglobin relatively stable. However, secondary to severe anemia and history of GI bleeding may require platelet transfusion as platelets are less than 20,000. Status: Acute (2) GI bleeding: This appears to have stabilized. Awaiting discussion with nurse regarding bowel movement this morning. Surgery following but not likely candidate for EGD secondary to severe thrombocytopenia. Status: Acute (3) Gastroduodenitis: Currently on Protonix. Will decrease dose. Status: Acute (4) Colitis: Continue Zosyn Await stool studies Status: Acute (5) Pancreatitis: No CT evidence of pancreatitis. Lipase was only minimally elevated. Status: Acute (6) Lactic acidosis: Secondary to alcoholism and liver cirrhosis, as well as hypoperfusion with poor oral intake, dehydration, acute gastroduodenitis and colitis. Status: Acute (7) High anion gap metabolic acidosis: Resolved Status: Acute (8) Alcoholism: Withdrawal may be abating. Continue thiamine Status: Acute (9) Thrombocytopenia: Initial platelet count 40,000. Consider platelet transfusion today. Status: Acute (10) Refeeding syndrome: Supplementing potassium and phosphorus today Status: Acute (11) Hypokalemia: Supplement Status: Acute (12) Hypomagnesemia: Normal today Status: Acute (13) Hypophosphatemia: Status: Acute (14) Ketonuria: Suspect this is starvation ketosis secondary to liver cirrhosis and poor oral intake. Status: Acute (15) Paroxysmal atrial fibrillation with RVR: Not candidate for anticoagulation Echocardiogram largely normal. Continue metoprolol. Status: Acute Additional A&P Information Leukopenia with ANC less than 500. Reverse isolation. Likely secondary to bone marrow suppression. Check HIV. Anxiety. Continue Zyprexa, has Ativan as needed. Euthyroid sick. No supplementation needed Tobacco dependency, will provide counseling Case discussed with patient's brother Abe who states he was the appointed guardian to fever was not present. Also discussed with patient's sister. They both state that patient was recently in [facility] in [facility] for alcohol addiction. She was discharged from there and has been living in an apartment. Usually their other sister goes up and checks on her. They also state that she has been to multiple alcohol addiction rehabilitation centers in the past. Did discuss with them if unfortunately patient decompensates start having multiple episodes of bloody bowel movements or found to have varices on the examination would most likely have to transfer the patient to a tertiary center as detective bowling alley is not available at the hospital. Outpatient rehab if possible. Full code Avoid SCDs currently secondary to severely low platelets Guarded prognosis. Attestations Medical Necessity Statement*: Needs continued hospitalization secondary to severe thrombocytopenia, GI bleeding Critical Care Time: 40 minutes spent in critical care time at bedside reviewing patient history, examining patient, making a treatment plan and discus orion with nursing. This patient has an acute illness with GI bleeding and severely low platelets that is currently life-threatening. Coding Level of Care Code Acute Radiological Metallurgist for Riley Mahmood Diagnoses Acute blood loss anemia D62 GI bleeding K92.2 Gastroduodenitis K29.90 Colitis K52.9 Pancreatitis K85.90 Lactic acidosis E87.2 High anion gap metabolic acidosis E87.2 Alcoholism F10.20 Thrombocytopenia D69.6 Refeeding syndrome E87.8 Hypokalemia E87.6 Hypomagnesemia E83.42 Hypophosphatemia E83.39 Ketonuria R82.4 Paroxysmal atrial fibrillation with RVR I48.0
[2020-02-05] MEDS: ARIPiprazole 2 mg Tablet PO (09:08)
[2020-02-05] MEDS: calcium carbonate 500 mg Chew Tablet PO ×2 (09:09→18:30)
[2020-02-05] MEDS: metoprolol tartrate 25 mg Tablet 12.5 MG PO ×2 (09:09→18:30)
[2020-02-05] MEDS: potassium chloride ER 10 mEq Tablet 40 MEQ PO (09:09)
[2020-02-05] MEDS: phosphorus 250 mg Tablet PO ×2 (09:10→18:47)
[2020-02-05] MEDS: pantoprazole 40 mg SDV IVP ×2 (09:10→20:21)
[2020-02-05] MEDS: magnesium oxide 400 mg tablet PO ×2 (09:10→18:30)
[2020-02-05] MEDS: gabapentin 100 mg Capsule 200 MG PO ×3 (09:10→20:21)
[2020-02-05] MEDS: folic acid 1 mg Tablet PO (09:11)
[2020-02-05] MEDS: lanolin oint 7 gm 1 APPLIC TOPICAL (10:25)
[2020-02-05] MEDS: LORazepam 2 mg Tablet PO (10:26)
--- NOTE | 2020-02-05 12:00 | P.PN_ITS ---
Subjective Subjective: Interval history: Patient had large loose bowel movement today, positive for C. difficile Vitals/I&O/Wt Last Vital Signs Temp 98.1 F 02/05/20 05:27 Pulse 96 02/05/20 10:00 Resp 16 02/05/20 10:00 BP 124/75 02/05/20 10:00 Pulse Ox 97 02/05/20 10:00 02/04/20 02/05/20 02/05/20 22:59 06:59 14:59 Intake Total 609.583 / 2796.250 1000 / 2796.250 50 / 50 Output Total 900 / 2290 200 / 200 Balance -290.417 / 446.412 2390 / 506.250 -150 / -150 Weight last 48 hrs Weight 160 lb Physical Exam Narrative: EXAM NARRATIVE: Abdomen: Soft, minimally tender, minimally distended Urinary Catheter Management^: Lainez: Cath Placed During This Visit: yes, but has since been removed by the nurse Reason for Continuing Indwelling Catheter: Decision to DC Catheter Date Urinary Catheter Removed: 02/04/20 Time Urinary Catheter Discontinued: 12:00 Data : 02/05/20 04:34 02/05/20 04:34 Micro: Microbiology 02/04/20 11:45 C.difficile Toxin B Gene (PCR) - Final Stool Routine Collection A&P Assessment and plan (1) Colitis: C. difficile positive which would explain the colitis Medical management no surgical intervention required Status: Acute (2) GI bleeding: Appears to be stable, hemoglobin is been hovering around 8 No evidence of active bleeding. Hold off on EGD/colonoscopy at this point Status: Acute Attestations Medical Necessity Statement*: GI bleed, C. difficile colitis Coding Level of Care Code Acute Pet House Sitter for [facility] Diagnoses Colitis K52.9 GI bleeding K92.2
--- NOTE | 2020-02-05 12:23 | PC.NURSE ---
PO ativan given at 10:26. Patient more agitated and confused since medical referral coordinator. Sitter at bedside. Room visible from nurses station. Will continue to assess, and round frequently.
--- NOTE | 2020-02-05 13:12 | PC.NURSE ---
Placed a call to Laboratory for ETA on PLT transfusion at 1130. Lab stated they would be working on getting PLT trasfusion ready, and would call when they were ready for cherry picker operator/transfusion.
--- NOTE | 2020-02-05 13:20 | PC.NURSE ---
pt. is more confused after po ativan was given. somewhat angry.
[2020-02-05 13:22] LABS: HIV 1 & 2 Antibody Non-Reactive (Non-Reactiv); HIV 1 & 2 Antigen Non-Reactive (Non-Reactiv)
--- NOTE | 2020-02-05 14:01 | PC.NURSE ---
family/friends called re: pt. condition. pt gave permission to speake to rafaela re: her condition. she expressed desire for her to go to [facility] in [place], [place], ph. # [phone]
--- NOTE | 2020-02-05 14:07 | PC.NURSE ---
addendum: rafaela requested [facility] when discharged
--- NOTE | 2020-02-05 14:32 | PC.NURSE ---
Plt transfusion began at 1416. Pt vital signs charted prior to the start of of transfusion admin. Bilateral breath sounds clear by auscultation. Second nurse verification before start of transfusion completed by MG Zuniga. Will continue to monitor at bedside.
--- NOTE | 2020-02-05 15:06 | PC.NURSE ---
PLT transfusion complete. Pt vitals are stable. PSA at bedside. Pt in bed, watching TV. Room visible from nurses station.
--- NOTE | 2020-02-05 16:24 | PC.RESP ---
Smoking Cessation information sent to patient.
[2020-02-05] MEDS: LORazepam 2 mg/mL INJ 1 mL IVP ×3 (16:33→20:50)
--- NOTE | 2020-02-05 16:40 | PC.NURSE ---
1 MG/0.5 mL of lorazepam given IVP as instructed by HCP. Other remaining 0.5mL of lorazepam on hand for PRN as needed as instructed by HCP
--- NOTE | 2020-02-05 17:01 | PC.NURSE ---
Pt very restless and aggitated. Second dose of 0.5mL of Lorazepam given IVP. Security called and is at bedside with PSA. Pt resting in bed. Room visible.
--- NOTE | 2020-02-05 17:58 | PC.NURSE ---
Pt increasingly more agitated and restless. Hallucinations both audibly and visually, seem to be increased as well. 2 mg Lorazepam given IVP. Pt repositioned in bed. Sitter at bedside. Room darkened to try and decrease environmental stimulus
--- NOTE | 2020-02-05 18:44 | PC.NURSE ---
Pt still confused to orientation. Agitation is still notable. PSA at bedside, and she takes the opportunity to try and reorient her to current place/situation.
[2020-02-05] MEDS: trazodone 100 mg Tablet PO (20:21)
[2020-02-05] MEDS: OLANZapine 10 mg VIAL IM (22:27)
[2020-02-06] VITALS (70 sets, daily range): BP systolic 71–146; BP diastolic 41–106; PULSE 74–115; RESP 4–35; TEMP 36.5–36.9; O2SAT 88–100
[2020-02-06 00:50] LABS: Glucose Point of Care 147 mg/dL (70-110)
[2020-02-06] MEDS: LORazepam 2 mg/mL INJ 1 mL IVP (02:03)
[2020-02-06] MEDS: dexmedetomidine 400 MCG in sodium chloride 0.9% (100 ml) 100 ML IV (02:07)
[2020-02-06] MEDS: piperacillin-tazobactam 3.375 GM in sodium chloride 0.9% (plus) 50 ML IV ×3 (03:24→18:06)
[2020-02-06 04:13] LABS: Basophils % 0.7 %; Hematocrit 24.5 % (37.0-47.0); Hemoglobin 7.4 g/dL (11.5-15.3); Lymphocytes # 0.5 10^3/uL (0.8-4.8); Mean Corpuscular HGB Conc 30.2 g/dL (30.0-36.0); Mean Corpuscular Volume 96.1 fL (81-99); Mean Platelet Volume 12.3 fL (7.4-10.4); Monocytes # 0.2 10^3/uL (0.2-0.9); Monocytes % 9.8 %; Neutrophils % 52.2 %; Nucleated Red Blood Cells % 0 %; Red Blood Count 2.55 10^6/uL (4.1-5.3); Red Cell Distribution Width 18.3 % (12.1-15.1); White Blood Count 1.5 10^3/uL (4.0-10.0)
[2020-02-06 04:33] LABS: Magnesium 1.8 mg/dL (1.7-2.3); Phosphorus 2.3 mg/dL (2.5-4.5)
[2020-02-06 04:37] LABS: Alanine Aminotransferase 29 U/L (0-33); Alkaline Phosphatase 135 IU/L (35-105); Ammonia 77 umol/L (11-51); Aspartate Amino Transferase 38 U/L (0-32); Carbon Dioxide 22 mmol/L (22-29); Chloride 110 mmol/L (98-107); Globulin 2.5 g/dL (1.3-4.6); Glomerular Filtration Rate 229.3 mL/min (90-130); Glucose 140 mg/dL (65-115); Sodium 142 mmol/L (136-145); Total Bilirubin 0.6 mg/dL (0.15-1.2); Total Protein 5.5 g/dL (6.6-8.7)
[2020-02-06 04:40] LABS: Blood Urea Nitrogen 1 mg/dL (6-20); Osmolality Calculated 292 mOsm/kg (285-295)
[2020-02-06] MEDS: dextrose 5%-sod chloride 0.9% 1,000 ML 100 ML IV ×2 (05:36→15:04)
[2020-02-06 06:32] LABS: Platelet Count 24 10^3/cmm (130-400)
[2020-02-06 06:33] LABS: Slide Review Slide Review Perform
--- NOTE | 2020-02-06 08:17 | PM.PN ---
Subjective Subjective: Interval history: Gely is sleeping when I entered the room. Precedex had to be added last night for alcohol withdrawal or potentially hepatic encephalopathy. Medications: Reviewed: Yes Vitals/I&O/Wt Last Vital Signs Temp 97.9 F 02/06/20 07:15 Pulse 82 02/06/20 08:00 Resp 22 H 02/06/20 08:00 BP 117/52 02/06/20 08:00 Pulse Ox 88 L 02/06/20 07:45 02/05/20 02/06/20 02/06/20 22:59 06:59 14:59 Intake Total 550 / 3453.166 1835.843 / 2335.593 0 / 0 Output Total 2800 / 3400 2200 / 5600 Balance -2250 / -2141.250 -1123.157 / -3264.407 0 / 0 Weight last 48 hrs Weight 86.183 kg Weight 72.575 kg Physical Exam Narrative: EXAM NARRATIVE: Sedated Cardiovascular regular rate and rhythm without murmur Lungs clear Abdomen is soft with positive bowel sounds Extremities no cyanosis clubbing or edema Urinary Catheter Management^: Lainez: Cath Placed During This Visit: yes, but has since been removed by the nurse Reason for Continuing Indwelling Catheter: Decision to DC Catheter Date Urinary Catheter Removed: 02/04/20 Time Urinary Catheter Discontinued: 12:00 Data : 02/06/20 03:49 02/06/20 03:49 Micro: Microbiology 02/04/20 11:45 Parasite Antigen Panel - Final Stool Routine Collection 02/04/20 11:45 Enteric Pathogens (PCR) - Final Stool Routine Collection 02/04/20 11:45 C.difficile Toxin B Gene (PCR) - Final Stool Routine Collection A&P Assessment and plan (1) Acute blood loss anemia: Hemoglobin is drifted down further. Considering severe thrombocytopenia, GI bleeding with C. difficile colitis we will transfuse 1 unit packed red blood cells. Status: Acute (2) GI bleeding: See above Status: Acute (3) Gastroduodenitis: At this point discontinue Protonix, changed to Pepcid Status: Acute (4) Colitis: Continue Zosyn Vancomycin added secondary to C. difficile Status: Acute (5) Pancreatitis: No CT evidence of pancreatitis. Lipase was only minimally elevated. Status: Acute (6) Lactic acidosis: Secondary to alcoholism and liver cirrhosis, as well as hypoperfusion with poor oral intake, dehydration, acute gastroduodenitis and colitis. Status: Acute (7) High anion gap metabolic acidosis: Resolved Status: Acute (8) Alcoholism: Withdrawal may be abating. Continue thiamine Status: Acute (9) Thrombocytopenia: Received a platelet transfusion on February 04 yesterday for platelet count less than 20,000. Today it is 24,000. Status: Acute (10) Refeeding syndrome: Supplement potassium today Status: Acute (11) Hypokalemia: Supplement Status: Acute (12) Hypomagnesemia: Borderline low. Supplement Status: Acute (13) Hypophosphatemia: High enough no supplementation needed today Status: Acute (14) Ketonuria: Suspect this is starvation ketosis secondary to liver cirrhosis and poor oral intake. Status: Acute (15) Paroxysmal atrial fibrillation with RVR: Not candidate for anticoagulation Echocardiogram largely normal. We will hold metoprolol secondary to hypotension Status: Acute Additional A&P Information Alcohol withdrawal. Ativan as needed. Precedex initiated. Possible hepatic encephalopathy. Add rifaximin. Continue fluids. Repeat level tomorrow. Secondary to C. difficile and diarrhea yesterday we will consider lactulose but only if no significant diarrhea today. Leukopenia. Likely secondary to bone marrow suppression. HIV checked and negative Anxiety. Continue Zyprexa, has Ativan as needed. Euthyroid sick. No supplementation needed Tobacco dependency, will provide counseling Case discussed with patient's brother Abe who states he was the appointed guardian to fever was not present. Also discussed with patient's sister. They both state that patient was recently in [facility] in [facility] for alcohol addiction. She was discharged from there and has been living in an apartment. Usually their other sister goes up and checks on her. They also state that she has been to multiple alcohol addiction rehabilitation centers in the past. Full code Avoid SCDs currently secondary to severely low platelets Guarded prognosis. Attestations Medical Necessity Statement*: Needs continued supportive care in the ICU secondary to hepatic encephalopathy, C. difficile colitis, markedly low platelets in this patient with alcohol withdrawal. Critical Care Time: 32 minutes spent in critical care time at bedside in this patient with multiorgan dysfunction secondary to alcohol including alcohol withdrawal, severe thrombocytopenia requiring transfusion, anemia requiring transfusion, C. difficile colitis. Patient with significant chance for worsening. Coding Level of Care Code Acute Treating Engineer Helper for Chg 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
[2020-02-06] MEDS: potassium chloride premix 40 MEQ/100 ML PREMIX 25 MEQ IV (09:08)
[2020-02-06] MEDS: magnesium sulfate premix 2 GM/50 ML PIGGYBACK IV (09:08)
[2020-02-06] MEDS: calcium carbonate 500 mg Chew Tablet PO ×2 (09:09→18:06)
[2020-02-06] MEDS: potassium chloride ER 10 mEq Tablet 40 MEQ PO (09:09)
[2020-02-06] MEDS: gabapentin 100 mg Capsule PO ×3 (09:10→20:21)
[2020-02-06] MEDS: famotidine 20 mg/2 mL INJ IVP ×2 (09:12→20:21)
[2020-02-06] MEDS: folic acid 1 mg Tablet PO (09:13)
--- NOTE | 2020-02-06 10:24 | PC.NURSE ---
Patient still confused to where she is at. She is easily temporarily reoriented this AM, after she is reminded that she is admitted into the hospital. Her BP has been running low. I titrated her precedex (sp?), down as BP was running low, and she was pretty sedated. I then remained at bedside in patient's room, until BP and other v/s stabilized. Per HCP request, her left ventrogluetal was inspected for a possible hematoma formation from an IM injection that was given in the PM shift on 02/05/20. No obvious hematoma was noted/palpated, however small bruising was noted at injection site, of about a 1cm around. PSA is at bedside, with room visible from nurses station and continuous monitoring of Pt V/S, and continuous rounding being done.
[2020-02-06 11:36] LABS: Glucose Point of Care 166 mg/dL (70-110)
--- NOTE | 2020-02-06 14:21 | PC.NURSE ---
During PRBC transfusion, patient became a little restless. At which point she turned towards her right side and connection became loose. Estimated 10-15cc of transfusion amount was lost on to the bedsheets immediately under her. Patient was then given a bed bath, with fresh linen and a new gown placed on her. Vital signs improved during and following transfusion. And continue to remain at a stable manner. PSA still sitting at bedside.Patient remains asleep, and is able to wake up when her name is called. Will continue to let patient to rest, and round frequently. Room is visible from nurses station.
--- NOTE | 2020-02-06 14:27 | PC.NURSE ---
Second nurse verification of PRBC transfusion was completed by Dari Sams RN before admin. Pre transfusion vital signs were charted and stable prior to admin. I remained with pt until completion of transfusion monitoring her vital signs. BP cuff was moved from left calf to right calf. Bruising noted on left calf from where the BP cuff was placed during previous shifts. Substantial bruising on both arms and both calfs from previous BP cuff placement and IV sticks. Extra tape securement to current IV right upper arm to try and maintain current IV site. Buttocks area red with rash. Generous ointment applied after toileting to make barrier.
[2020-02-06] MEDS: ondansetron 2 mg/ML SDV 2 mL 4 MG IVP (15:03)
[2020-02-06] MEDS: ARIPiprazole 2 mg Tablet PO (15:34)
--- NOTE | 2020-02-06 16:54 | PC.NURSE ---
Vancomycin and Abilify given after scheduled time because of a delay with pharmacy. Out of stock on the floor. Pharmacy was called, and both medicines were brought down by pharmacy as soon as they were able to.
[2020-02-06] MEDS: oxyCODONE 5 mg IR Tab/Cap PO ×2 (17:10→23:32)
[2020-02-06 17:33] LABS: Glucose Point of Care 138 mg/dL (70-110)
--- NOTE | 2020-02-06 17:54 | PC.NURSE ---
MD advised to hold, (Do not D/C), 1800 dose of Lactulose based on bowel movement frequencies this PM.
--- NOTE | 2020-02-06 18:43 | PC.NURSE ---
Pt in bed and is remaining calm. Sitter at bedside. She is oriented to person, place, and time. And has been increasingly cooperative throughout the shift. She has complained of moderate pain at 1600, which was addressed with new pain med order from MD. Pt states pain medication has decreased pain down to a 2. She has been advanced slowly to a clear liquid diet. Still has continued loose bowel movements that have slowed down and decreased in frequency/amount. Numerous linen changes have been completed, with gown changes done as well.
[2020-02-06] MEDS: trazodone 100 mg Tablet PO (20:20)
[2020-02-07] VITALS (20 sets, daily range): BP systolic 86–128; BP diastolic 54–78; PULSE 86–105; RESP 12–22; TEMP 36.6–37.1; O2SAT 96–100
[2020-02-07] MEDS: dextrose 5%-sod chloride 0.9% 1,000 ML 100 ML IV ×2 (00:56→22:12)
[2020-02-07] MEDS: piperacillin-tazobactam 3.375 GM in sodium chloride 0.9% (plus) 50 ML IV (00:59)
[2020-02-07 06:43] LABS: Ammonia 76 umol/L (11-51)
[2020-02-07 08:39] LABS: Basophils % 0.6 %; Eosinophils % 2.4 %; Hematocrit 27.1 % (37.0-47.0); Hemoglobin 8.1 g/dL (11.5-15.3); Lymphocytes # 0.7 10^3/uL (0.8-4.8); Lymphocytes % 39.6 %; Mean Corpuscular HGB Conc 29.9 g/dL (30.0-36.0); Mean Corpuscular Hemoglobin 29.2 pg (28.0-34.0); Mean Corpuscular Volume 97.8 fL (81-99); Mean Platelet Volume 11.3 fL (7.4-10.4); Monocytes # 0.2 10^3/uL (0.2-0.9); Monocytes % 12.4 %; Neutrophils % 44.4 %; Nucleated Red Blood Cells % 0 %; Positive C 1; Red Blood Count 2.77 10^6/uL (4.1-5.3); Red Cell Distribution Width 18.9 % (12.1-15.1); White Blood Count 1.7 10^3/uL (4.0-10.0)
[2020-02-07] MEDS: famotidine 20 mg/2 mL INJ IVP ×2 (08:39→19:44)
[2020-02-07] MEDS: oxyCODONE 5 mg IR Tab/Cap PO ×3 (08:39→20:34)
[2020-02-07 08:44] LABS: INR 1.06 (0.8-1.2)
[2020-02-07 09:01] LABS: Neutrophils # 0.75 10^3/uL (1.8-7.7); Platelet Count 27 10^3/cmm (130-400); Slide Review Slide Review Perform
[2020-02-07] MEDS: folic acid 1 mg Tablet PO ×2 (09:27→09:28)
[2020-02-07] MEDS: potassium chloride ER 10 mEq Tablet 40 MEQ PO (09:27)
[2020-02-07] MEDS: gabapentin 100 mg Capsule PO ×3 (09:28→20:34)
[2020-02-07] MEDS: calcium carbonate 500 mg Chew Tablet PO ×2 (09:28→18:15)
[2020-02-07] MEDS: ARIPiprazole 2 mg Tablet PO (09:29)
--- NOTE | 2020-02-07 11:16 | PC.NURSE ---
Covid test done and sent to lab
--- NOTE | 2020-02-07 11:40 | PM.PN ---
Subjective Subjective: Interval history: Gely reports she has some pain all over. She feels better and wants to eat. No shortness of breath. Agreeable to going to a nursing facility. Medications: Reviewed: Yes Vitals/I&O/Wt Last Vital Signs Temp 98.0 F 02/07/20 04:00 Pulse 96 02/07/20 11:00 Resp 13 02/07/20 11:00 BP 86/54 02/07/20 11:00 Pulse Ox 96 02/07/20 11:00 02/06/20 02/07/20 02/07/20 22:59 06:59 14:59 Intake Total 1926.667 / 2426.667 1466.667 / 3893.334 360 / 360 Output Total 1550 / 1850 1200 / 3050 600 / 600 Balance 376.667 / 576.667 266.667 / 843.334 -240 / -240 Weight last 48 hrs Weight 86.268 kg Weight 86.183 kg Physical Exam Narrative: EXAM NARRATIVE: Sedated Cardiovascular regular rate and rhythm without murmur Lungs clear Abdomen is soft with positive bowel sounds Extremities no cyanosis clubbing or edema Urinary Catheter Management^: Lainez: Cath Placed During This Visit: yes, but has since been removed by the nurse Reason for Continuing Indwelling Catheter: Decision to DC Catheter Date Urinary Catheter Removed: 02/04/20 Time Urinary Catheter Discontinued: 12:00 Data : 02/07/20 08:30 02/06/20 03:49 A&P Assessment and plan (1) Acute blood loss anemia: Hemoglobin and platelets appear stable. No obvious further GI bleeding. She was transfused 1 unit of platelets February 04 Status: Acute (2) GI bleeding: Stabilized. She was transfused 1 unit of PRBCs February 05 Status: Acute (3) Gastroduodenitis: Continue Pepcid Status: Acute (4) Colitis: C. difficile colitis. Continue vancomycin Status: Acute (5) Pancreatitis: No CT evidence of pancreatitis. Lipase was only minimally elevated. Status: Acute (6) Lactic acidosis: Secondary to alcoholism and liver cirrhosis, as well as hypoperfusion with poor oral intake, dehydration, acute gastroduodenitis and colitis. Status: Acute (7) High anion gap metabolic acidosis: Resolved Status: Acute (8) Alcoholism: No significant withdrawal noted currently Continue thiamine Status: Acute (9) Thrombocytopenia: Received a platelet transfusion on February 04 for platelet count less than 20,000. Platelets appear to have stabilized Status: Acute (10) Refeeding syndrome: Awaiting CMP from today Status: Acute (11) Hypokalemia: Awaiting CMP Status: Acute (12) Hypomagnesemia: Awaiting CMP Status: Acute (13) Hypophosphatemia: High enough no supplementation needed today Status: Acute (14) Ketonuria: Suspect this is starvation ketosis secondary to liver cirrhosis and poor oral intake. Status: Acute (15) Paroxysmal atrial fibrillation with RVR: Not candidate for anticoagulation Echocardiogram largely normal. We will hold metoprolol secondary to hypotension Status: Acute Additional A&P Information Alcohol withdrawal. Ativan as needed. Precedex initiated. Hepatic encephalopathy. Continue rifaximin, lactulose Leukopenia. Likely secondary to bone marrow suppression. HIV checked and negative Anxiety. Continue Zyprexa, has Ativan as needed. Euthyroid sick. No supplementation needed Tobacco dependency, will provide counseling Case discussed with patient's brother Abe who states he was the appointed guardian to fever was not present. Also discussed with patient's sister. They both state that patient was recently in [facility] in [facility] for alcohol addiction. She was discharged from there and has been living in an apartment. Usually their other sister goes up and checks on her. They also state that she has been to multiple alcohol addiction rehabilitation centers in the past. Full code Avoid SCDs currently secondary to severely low platelets Overall improving. Transfer out of ICU today. Attestations Medical Necessity Statement*: Needs continued hospitalization for close follow-up of electrolyte abnormalities, alcohol withdrawal pending placement at halfway facility. Coding Level of Care Code Acute Cut Off Saw Operator Metal for Chg 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
[2020-02-07 11:47] LABS: Glucose Point of Care 125 mg/dL (70-110)
[2020-02-07] MEDS: LORazepam 2 mg Tablet PO ×2 (11:48→19:35)
[2020-02-07 12:16] LABS: Magnesium 1.7 mg/dL (1.7-2.3); Phosphorus 2.5 mg/dL (2.5-4.5)
[2020-02-07 12:17] LABS: Alanine Aminotransferase 31 U/L (0-33); Albumin Level 3.1 g/dL (3.5-5.2); Alkaline Phosphatase 129 IU/L (35-105); Anion Gap 13.9 (5-19); Aspartate Amino Transferase 40 U/L (0-32); Calcium 8.1 mg/dL (8.5-10.5); Carbon Dioxide 22 mmol/L (22-29); Chloride 111 mmol/L (98-107); Globulin 2.4 g/dL (1.3-4.6); Glomerular Filtration Rate 127.2 mL/min (90-130); Glucose 130 mg/dL (65-115); Potassium 3.9 mmol/L (3.5-5.1); Sodium 143 mmol/L (136-145); Total Bilirubin 0.5 mg/dL (0.15-1.2); Total Protein 5.5 g/dL (6.6-8.7)
[2020-02-07 12:34] LABS: Blood Urea Nitrogen 1 mg/dL (6-20); Osmolality Calculated 293 mOsm/kg (285-295)
--- NOTE | 2020-02-07 14:00 | PC.NURSE ---
REPORT CALLED TO KWADWO HOLLIDAY. PT & BELONGINGS SENT TO ROOM 260. TEETH/PHONE/GLASSES/BAG WITH MEDS. WISHED WELL
[2020-02-07 16:58] LABS: Glucose Point of Care 125 mg/dL (70-110)
[2020-02-07] MEDS: lactulose oral liq 20 gm/30 mL UDC 30 GM PO (18:15)
[2020-02-07 20:15] LABS: Glucose Point of Care 138 mg/dL (70-110)
[2020-02-07] MEDS: trazodone 100 mg Tablet PO (20:34)
[2020-02-08] VITALS (7 sets, daily range): BP systolic 105–121; BP diastolic 55–76; PULSE 86–98; RESP 14–18; TEMP 36.9–37.5; O2SAT 92–98
[2020-02-08 06:08] LABS: Basophils % 0.5 %; Eosinophils % 2.2 %; Hematocrit 26.9 % (37.0-47.0); Lymphocytes # 0.7 10^3/uL (0.8-4.8); Lymphocytes % 37.9 %; Mean Corpuscular HGB Conc 29.7 g/dL (30.0-36.0); Mean Corpuscular Volume 97.5 fL (81-99); Mean Platelet Volume 12.5 fL (7.4-10.4); Monocytes # 0.2 10^3/uL (0.2-0.9); Monocytes % 13.2 %; Neutrophils % 45.1 %; Nucleated Red Blood Cells % 0 %; Positive C 1; Red Blood Count 2.76 10^6/uL (4.1-5.3); Red Cell Distribution Width 18.2 % (12.1-15.1); White Blood Count 1.8 10^3/uL (4.0-10.0)
[2020-02-08 06:23] LABS: Alanine Aminotransferase 25 U/L (0-33); Albumin Level 2.9 g/dL (3.5-5.2); Alkaline Phosphatase 119 IU/L (35-105); Aspartate Amino Transferase 30 U/L (0-32); Calcium 8.3 mg/dL (8.5-10.5); Carbon Dioxide 24 mmol/L (22-29); Chloride 106 mmol/L (98-107); Globulin 2.2 g/dL (1.3-4.6); Glomerular Filtration Rate 164.5 mL/min (90-130); Glucose 109 mg/dL (65-115); Sodium 138 mmol/L (136-145); Total Bilirubin 0.5 mg/dL (0.15-1.2); Total Protein 5.1 g/dL (6.6-8.7)
[2020-02-08 06:25] LABS: Anion Gap 12.1 (5-19); Blood Urea Nitrogen 1 mg/dL (6-20); Osmolality Calculated 282 mOsm/kg (285-295); Potassium 4.1 mmol/L (3.5-5.1)
[2020-02-08 06:28] LABS: Neutrophils # 0.82 10^3/uL (1.8-7.7); Platelet Count 28 10^3/cmm (130-400)
[2020-02-08 06:34] LABS: Glucose Point of Care 111 mg/dL (70-110)
[2020-02-08] MEDS: gabapentin 100 mg Capsule PO ×2 (09:27→16:28)
[2020-02-08] MEDS: oxyCODONE 5 mg IR Tab/Cap PO (09:29)
[2020-02-08] MEDS: calcium carbonate 500 mg Chew Tablet PO ×2 (09:31→17:01)
[2020-02-08] MEDS: potassium chloride ER 10 mEq Tablet 40 MEQ PO (09:31)
[2020-02-08] MEDS: ARIPiprazole 2 mg Tablet PO (09:32)
[2020-02-08] MEDS: famotidine 20 mg/2 mL INJ IVP (09:34)
[2020-02-08] MEDS: dextrose 5%-sod chloride 0.9% 1,000 ML 100 ML IV (09:35)
[2020-02-08] MEDS: lactulose oral liq 20 gm/30 mL UDC 30 GM PO (09:48)
[2020-02-08] MEDS: folic acid 1 mg Tablet PO (09:49)
[2020-02-08 11:11] LABS: Glucose Point of Care 132 mg/dL (70-110)
--- NOTE | 2020-02-08 13:04 | P.DS_ITS ---
Discharge Providers Date of Admission: 02/02/20 23:10 Date of Discharge: February 08, 2020 Attending Provider at Admission: Vadim Mcconnell Attending Provider at Discharge: Jose Moreland MD Diagnoses at Discharge Discharge Diagnosis (1) Acute blood loss anemia: Status: Acute Problem details: Secondary to colitis from C. difficile. This is abated. (2) GI bleeding: Status: Acute (3) Gastroduodenitis: Status: Acute (4) Colitis: Status: Acute Problem details: Secondary to C. difficile. Will finish a 14-day course of vancomycin (5) Pancreatitis: Status: Acute (6) Lactic acidosis: Status: Acute (7) High anion gap metabolic acidosis: Status: Acute (8) Alcoholism: Status: Acute (9) Thrombocytopenia: Status: Acute Problem details: Stable and slowly increasing (10) Refeeding syndrome: Status: Acute (11) Hypokalemia: Status: Acute Problem details: Resolved (12) Hypomagnesemia: Status: Acute (13) Hypophosphatemia: Status: Acute (14) Ketonuria: Status: Acute (15) Paroxysmal atrial fibrillation with RVR: Status: Acute Problem details: Continue her metoprolol Reason for Visit Reason for Visit: etoh Hospital Course Hospital Course: Gely is a 59-year-old white female alcoholic who presented with history of some bloody stool and diarrhea. Slight lipase elevation was also concerning for possible pancreatitis. Electrolyte abnormalities such as hypokalemia and hypomagnesemia were noted. She had significant anemia as well as thrombocytopenia, certainly exacerbated by her GI bleeding. During her hospital stay surgery consultation was obtained. Secondary to her thrombocytopenia no endoscopy was performed. During her hospital course a stool specimen for C. difficile came back positive. Vancomycin orally was started. She was treated for alcohol withdrawal, with benzodiazepines as well as a Precedex drip. Secondary to significant anemia and thrombocytopenia she was transfused 1 unit of packed red blood cells as well as 1 unit of platelets while in the hospital. With treatment of her C. difficile, and resolution of her alcohol withdrawal platelet count seem to stabilize. White blood cell count was still significantly low. I discussed with the patient, that should these changes of thrombocytopenia, anemia, and leukopenia persist after she has stopped drinking for the next 2 to 3 weeks consideration of hematology referral. She acknowledges this. I discussed with the patient nursing facility care to increase strengthening and this was arranged. She was stable to be discharged on February 07. Nursing facility had asked a Covid 19 test to be done and this was performed prior to discharge, but results not yet available. They had no concerns taking the patient with pending results as this was done just for screening prior to admission. Discharge hemoglobin 8.1. Discharge platelet count 27,000. No significant abdominal discomfort at discharge. Still with loose stools, which was desired secondary to concern for hepatic encephalopathy while the patient was in the hospital as well. Lactulose was initiated and we are trying to titrate to approximately 2 loose stools a day which the patient was having near discharge. Secondary to anemia there should also be consideration of EGD and colonoscopy in the future, following resolution of C. difficile colitis. Physical Exam Narrative: EXAM NARRATIVE: General exam no apparent distress Cardiovascular regular rate and rhythm Lungs clear Abdomen is soft nontender, benign Extremities no cyanosis clubbing or edema Urinary Catheter Management^: Lainez: Cath Placed During This Visit: yes, but has since been removed by the nurse Reason for Continuing Indwelling Catheter: Decision to DC Catheter Date Urinary Catheter Removed: 02/04/20 Time Urinary Catheter Discontinued: 12:00 Discharge Data Data Completed and Pending: Completed Studies During Hospitalization Category Date Time Status CT abdomen pelvis w con* [id number] Stat Cat Scan 02/02/20 20:[address] angio abdomen pelvis [id number] Stat Cat Scan 02/03/20 09:[address] head wo con* [id number] Stat Cat Scan 02/02/20 20:[address] lumbar spine w o con* [id number] Routi ne Cat Scan 02/03/20 01:23 Completed XR chest 1V raheem ble [id number] Stat Exams 02/02/20 20:10 Completed CV echo complete* [id number] Routine Ultrasound 02/04/20 06:00 Completed US abdomen comple te* [id number] Urgent Ultrasound 02/02/20 20:11 Completed Pending at discharge Category Date Time Status PTC COVID [Pena virus Lab Test PTC ] Routine Lab 02/07/20 11:00 Received Labs from last 24 hours 02/08/20 02/08/20 02/08/20 10:52 06:23 05:55 WBC RBC Hgb Hct MCV MCH MCHC RDW Plt Count MPV Neut % (Auto) Lymph % (Auto) [place] % (Auto) Eos % (Auto) Baso % (Auto) Neut # (Auto) Lymph # (Auto) [place] # (Auto) Eos # (Auto) Baso # (Auto) Nucleated RBC % (a uto) Nucleated RBCs # Sodium 138 Potassium 4.1 Chloride 106 Carbon Dioxide 24 Anion Gap 12.1 BUN 1 L Creatinine 0.4 L GFR Calculation 164.5 H Glucose 109 POC Glucose 132 111 Calculated Osmolal ity 282 L Calcium 8.3 L Total Bilirubin 0.5 AST 30 ALT 25 Alkaline Phosphata se 119 H Total Protein 5.1 L Albumin 2.9 L Globulin 2.2 02/08/20 02/07/20 02/07/20 05:55 19:50 16:42 WBC 1.8 L RBC 2.76 L Hgb 8.0 L Hct 26.9 L MCV 97.5 MCH 29.0 MCHC 29.7 L RDW 18.2 H Plt Count 28 L* MPV 12.5 H Neut % (Auto) 45.1 Lymph % (Auto) 37.9 [place] % (Auto) 13.2 Eos % (Auto) 2.2 Baso % (Auto) 0.5 Neut # (Auto) 0.82 L* Lymph # (Auto) 0.7 L [place] # (Auto) 0.2 Eos # (Auto) 0.0 Baso # (Auto) 0.0 Nucleated RBC % (a uto) 0 Nucleated RBCs # 0.0 Sodium Potassium Chloride Carbon Dioxide Anion Gap BUN Creatinine GFR Calculation Glucose POC Glucose 138 125 Calculated Osmolal ity Calcium Total Bilirubin AST ALT Alkaline Phosphata se Total Protein Albumin Globulin Vitals: Last Vital Signs Temp 98.4 F 02/08/20 11:10 Pulse 87 02/08/20 11:10 Resp 18 02/08/20 11:10 BP 105/67 02/08/20 11:10 Pulse Ox 97 02/08/20 11:10 Discharge Plan Discharge Patient Disposition: Xfer SNF Condition: Stable Prescriptions: New Xifaxan 550 mg Tablet 550 mg PO BID Qty: 60 RF: 0 vancomycin 125 mg capsule 125 mg PO QID 14 Days Qty: 56 RF: 0 gabapentin 100 mg Capsule 100 mg PO TID Qty: 90 RF: 0 lactulose 20 gram/30 mL Solution 30 g PO BID Qty: 240 RF: 0 famotidine [Pepcid] 20 mg tablet 20 mg PO BID 42 Days Qty: 60 RF: 0 Continued venlafaxine [Effexor XR] 150 mg capsule,extended release 24hr 150 mg PO DAILY RF: 0 Lantus Solostar U-100 Insulin 100 unit/mL (3 mL) Insulin Pen 25 unit SUBCUT DAILY RF: 0 metformin 1,000 mg Tablet 1,000 mg PO BID RF: 0 folic acid 1 mg Tablet 1 mg PO DAILY RF: 0 metoprolol succinate 25 mg Tablet Extended Release 24 Hr 25 mg PO DAILY RF: 0 Vitamin D2 1,250 mcg (50,000 unit) Capsule See Rx Instructions .ROUTE .COMPLEX RF: 0 aripiprazole 2 mg Tablet 2 mg PO DAILY RF: 0 trazodone 100 mg Tablet 100 mg PO BEDTIME RF: 0 Discontinued spironolactone [Aldactone] 100 mg tablet 100 mg PO DAILY RF: 0 gabapentin 300 mg capsule 300 mg PO DAILY RF: 0 furosemide 40 mg tablet 40 mg PO DAILY RF: 0 progesterone micronized 100 mg Capsule 100 mg PO BEDTIME RF: 0 lactulose 10 gram/15 mL (15 mL) Solution 10 g PO BID PRN (Reason: Constipation) RF: 0 ibuprofen 800 mg Tablet 800 mg PO Q6H RF: 0 topiramate 50 mg Tablet 50 mg PO DAILY RF: 0 hydroxyzine pamoate 50 mg Capsule 50 mg PO TID RF: 0 amoxicillin-pot clavulanate 875-125 mg Tablet 1 tab PO Q12H RF: 0 Discharge Orders: Discharge Order (Routine); Ordered 02/08/20 Ordered By: Jose Moreland Discharge Diet: Diabetic Discharge Activity: Increase activity as tolerated Activity Restrictions/Additional Instructions: [facility]-up in the next 3 days CBC, CMP in 3 days Discharge Attestations Time Spent in Discharge Care*: greater than 30 min Quality Metrics Clinical Quality Measures During this hospital stay, did patient experience: None Coding Level of Care Code 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
[2020-02-08] MEDS: LORazepam 2 mg Tablet PO (13:51)
[2020-02-08 14:40] LABS: Coronavirus Lab Test PTC NOT DETECTED
[2020-02-08] MEDS: ondansetron 2 mg/ML SDV 2 mL 4 MG IVP (16:28)
[2020-02-08 16:53] LABS: Glucose Point of Care 143 mg/dL (70-110)
[2020-02-08] MEDS: ondansetron 4 MG Tablet PO (17:00)
== END 2020-02-08 17:09 | disposition skilled nursing facility (03) | DRG 377 ==
LOC: ER 20:39 → ICU 23:17 → MEDSURG 02-07 14:50
PROVIDERS: Emergency Medicine; Student in an Organized Health Care Education/Training Program; Admitting Provider Internal Medicine; Visit Provider Internal Medicine
DX: K92.2 Gastrointestinal hemorrhage, unspecified (principal); K85.90 Acute pancreatitis without necrosis or infection, unspecified; K72.91 Hepatic failure, unspecified with coma; D62 Acute posthemorrhagic anemia; E87.2 Acidosis; A04.72 Enterocolitis due to Clostridium difficile, not specified as recurrent; F10.239 Alcohol dependence with withdrawal, unspecified; E83.42 Hypomagnesemia; E87.6 Hypokalemia; I48.0 Paroxysmal atrial fibrillation; D69.6 Thrombocytopenia, unspecified; F41.8 Other specified anxiety disorders; F17.210 Nicotine dependence, cigarettes, uncomplicated
CPT/HCPCS: 12345; 36415; 36416; 36430; 36600; 70450; 71045; 72131; 74174; 74177; 76700; 80051; 80053; 80307; 80500; 81001; 82009; 82140; 82550; 82810; 82962; 83605; 83690; 83735; 83986; 84100; 84439; 84443; 84481; 84484; 85018; 85025; 85362; 85378; 85384; 85610; 85730; 86850; 86900; 86920; 87040; 87493; 87506; 87635; 87806; 93005; 93306; 96365; 96366; 96367; 96368; 96372; 96375; 99283; 99285; C9113; J0610; J0696; J2060; J2270; J2405; J2543; J3370; J3411; J3475; J3480; J3490; J7030; P9016; P9035; Q0162; Q9967

== ENCOUNTER 2020-02-02 20:02 | Emergency (ER) | payer MEDICAID, SELFPAY | END 2020-02-03 00:45 | disposition home or self-care (01) | LOC: ER 03-15 06:53 | PROVIDERS: Emergency Provider Emergency Medicine | DX: R11.2 Nausea with vomiting, unspecified (principal); R19.7 Diarrhea, unspecified | CPT/HCPCS: 12345; 36415; 36600; 70450; 71045; 74177; 76700; 80051; 80053; 80307; 81001; 82009; 82140; 82550; 82810; 83605; 83690; 83735; 83986; 84439; 84443; 84484; 85025; 85610; 85730; 86850; 86900; 86920; 93005; 96365; 96366; 96367; 96368; 96375; 99283; 99285; C9113; J0696; J2405; J2543; J3411; J3480; J3490; J7030; Q9967 ==